=== PATIENT | female | born 1955 | race Caucasian/White ===

== ENCOUNTER 2020-05-22 16:53 | Emergency (ER) | payer OTHER, SELFPAY ==
[2020-05-22 17:00] VITALS: BP 203/93; PULSE 68; RESP 19; TEMP 37.1; O2SAT 99; BMI 23.7
--- NOTE | 2020-05-22 17:07 | DI.RAD.S_ITS ---
PROCEDURE: XR FINGER LT MIN 2V INDICATIONS: jammed finger after a fall TECHNIQUE: 2 views of the 3rd finger(s) acquired. COMPARISON: None. FINDINGS: Bones: There is a dislocation of the proximal interphalangeal joint of the 3rd finger, with a 2 mm avulsion fracture fragment seen. No additional fractures or dislocations are seen. Soft tissues: No suspicious soft tissue calcifications. IMPRESSION: Dislocation of the proximal interphalangeal joint of the 3rd finger, with an associated avulsion fracture. Dictated by: Stone Moreno M.D. on 05/22/2020 at 16:28 Approved by: Stone Moreno M.D. on 05/22/2020 at 16:29
--- NOTE | 2020-05-22 18:20 | PC.NURSE ---
took her wedding ring and band.
[2020-05-22 18:30] VITALS: BP 133/65; PULSE 85; RESP 14; O2SAT 96
--- NOTE | 2020-05-22 19:12 | ED_ITS ---
HPI - Extremity Injury (Upper) <JOAQUINA Dukes - Last Filed: 05/22/20 22:34> General Chief Complaint: Extremity Injury, Upper Stated Complaint: thinks she broke her middle finger left hand Time Seen by Provider: 05/22/20 18:39 Source: patient Mode of arrival: Family Vehicle Limitations: no limitations History of Present Illness HPI narrative: This is a 64 year female, nonsmoker, who has past medical history significant for hypertension presents to ED with isolated, non dominant hand, left long finger injury after she slipped and fell on a slippery back and jammed her finger on a hard object this afternoon. There is a skin injury on volar aspect on the same finger. Patient reports significant pain in proximal interphalangeal joint and swelling. Unsure of last Td. Patient reports wave like. She is not on blood thinner and denies history of previous injury to affected hand. She denies other injuries including head. PCP at [facility]. Related Data Previous Rx's Medication Instructions Recorded cephalexin [Keflex] 500 mg PO QID 7 Days #28 cap 05/22/20 hydrocodone-acetaminophen [[place]] 1 tab PO Q8H PRN #7 tab 05/22/20 Allergies Allergy/AdvReac Type Severity Reaction Status Date / Time ibuprofen Allergy Rash Verified 05/22/20 17:07 Review of Systems <JOAQUINA Dukes - Last Filed: 05/22/20 22:34> Review of Systems Narrative: General: Denies fever, chills, fatigue, malaise, sweats. Respiratory: Denies dyspnea, cough, wheezing, hemoptysis, sputum. : Denies dysuria, frequency, incontinence, hematuria, urinary retention. Musculoskeletal: HPI Skin: HPI Neurologic: Denies weakness, headache, numbness, change in speech, confusion, seizures, incoordination. Patient History <JOAQUINA Dukes - Last Filed: 05/22/20 22:34> Medical History Hypertension Social History Smoking Status: Former smoker Smoking Status: Former smoker alcohol intake frequency: 0-2 drinks per day Substance Use Type: marijuana Exam <Suleman Cisneros, [employer]OM[employer] - Last Filed: 05/22/20 22:34> Narrative Exam Narrative: General appearance: well developed, well nourished, in no acute distress. Head: normocephalic, atraumatic, no scalp lesions, non-tender. ENT: Hearing grossly intact. Airway patent. Neck/Thyroid: neck supple, full range of motion, no visible masses or meningeal signs. No JVD, non-tender without lymphadenopathy. Skin: no suspicious rashes, lesions over visible areas. Warm and dry and appropriate color for ethnicity. Heart: no clubbing, no cyanosis, no edema. Lungs: Breathing even and unlabored. No stridor. No accessory muscles used. Able to speak in full sentences. Chest: normal shape and expansion. Abdomen: non-obese, non-distended. Neurologic: alert and oriented. Cognitive exam, VALUER and PNS grossly intact on informal exam. Psych: good eye contact, normal affect. Initial Vital Signs Initial Vital Signs: Vital Signs Temperature 98.7 F 05/22/20 17:00 Pulse Rate 68 05/22/20 17:00 Respiratory Rate 19 05/22/20 17:00 Blood Pressure 203/93 H 05/22/20 17:00 Pulse Oximetry 99 05/22/20 17:00 Extrem Left upper extremity: wrist Details: normal to inspection and normal ROM; no tenderness and no swelling and hand Details: abnormal to inspection, normal capillary refill, neuromotor exam abnormal, neurosensory exam normal, tenderness, vascular exam Details: radial pulse present and normal capillary refill, abnormal ROM of finger Details: pain with active ROM, pain with passive ROM and unable to flex or extend, swelling (general swelling to long finger worse in PIP region) Location: of the 3rd digit and laceration; no foreign bodies <Juliane Vieyra DO - Last Filed: 05/23/20 05:46> Initial Vital Signs Initial Vital Signs: Vital Signs Temperature 98.7 F 05/22/20 17:00 Pulse Rate 68 05/22/20 17:00 Respiratory Rate 19 05/22/20 17:00 Blood Pressure 203/93 H 05/22/20 17:00 Pulse Oximetry 99 05/22/20 17:00 Procedures <Suleman RamachandranJOAQUINA Sinha - Last Filed: 05/22/20 22:34> Orthopedic Joint Reduction Joint #1: Time Out Performed: Yes Side: left Joint Reduction Location: finger (long finger) Analgesia: nerve block Local Anesthesia: lidocaine 1% and with bicarb Amount of anesthesic used (mL): 3 Shoulder Technique Used (if applicable): traction/counter-traction Technique used: traction/counter-traction Post-reduction neuro exam: no change Post-reduction vascular: intact Post Reduction X-Ray Obtained: Yes Post Reduction X-Ray Results: reduced (on the 2nd attempt by Dr. Vieyra. ) Splint Applied: Yes Patient Tolerated Procedure: Well Additional Comments: First attempt by myself, was not able to be reduced. From skin wound started bleeding and direct pressure and Leland tourniquet applied for 5 minutes which slowed the bleeding. Wound dressed with bacitracin and pressure dressing by nursing staff. Scores <JOAQUINA Dukes - Last Filed: 05/22/20 22:34> GCS [place] coma scale eye opening: Spontaneous [place] coma scale verbal response: Orientated [place] coma scale motor response: Obey commands [place] coma scale total score: 15 Course <JOAQUINA Dueks - Last Filed: 05/22/20 22:34> Orders Ordered: Discontinued Medications Acetaminophen (Acetaminophen 325 Mg Tablet) 325 mg PO NOW ONE Stop: 05/22/20 18:50 Last Admin: 05/22/20 19:15 Dose: 325 mg Documented by: MARJORIE Hydrocodone Bitart/Acetaminophen (Hydrocodone/Acet 5/325 Prepack) 1 bottle MISC SEEINSTR ONE Stop: 05/22/20 18:50 Last Admin: 05/22/20 19:15 Dose: 1 bottle Documented by: MARJORIE Bacitracin (Bacitracin Oint 0.9 Gm Pckt) 1 applic TOP NOW ONE Stop: 05/22/20 18:50 Last Admin: 05/22/20 19:15 Dose: 1 applic Documented by: MARJORIE Cefazolin Sodium (Cephalexin 250 Mg Prepack) 1 bottle MISC SEEINSTR ONE Stop: 05/22/20 19:14 Last Admin: 05/22/20 19:21 Dose: 250 mg Documented by: MARJORIE Diphtheria/Tetanus/Acell Pertussis (Tet,Diph,Pertuss(Acell),Vac/Pf 0.5 Ml Syringe) 0.5 ml IM .ONCE ONE Stop: 05/22/20 18:50 Last Admin: 05/22/20 19:16 Dose: 0.5 ml Documented by: MARJORIE Lidocaine/Sodium Bicarbonate (Lido 1%/Sod Bicarb 8.4% (10ml) 10 Ml Syringe) 10 ml INJ NOW ONE Stop: 05/22/20 18:50 Last Admin: 05/22/20 19:15 Dose: 10 ml Documented by: MARJORIE Vital Signs Vital signs: Vital Signs - 8 hr 05/22/20 17:00 05/22/20 18:30 05/22/20 19:55 Temperature 98.7 F Pulse Rate 68 85 Respiratory Rate 19 14 Blood Pressure 203/93 H 133/65 212/94 H Pulse Oximetry 99 96 <Juliane Vieyra DO - Last Filed: 05/23/20 05:46> Orders Ordered: Discontinued Medications Acetaminophen (Acetaminophen 325 Mg Tablet) 325 mg PO NOW ONE Stop: 05/22/20 18:50 Last Admin: 05/22/20 19:15 Dose: 325 mg Documented by: MARJORIE Hydrocodone Bitart/Acetaminophen (Hydrocodone/Acet 5/325 Prepack) 1 bottle MISC SEEINSTR ONE Stop: 05/22/20 18:50 Last Admin: 05/22/20 19:15 Dose: 1 bottle Documented by: MARJORIE Bacitracin (Bacitracin Oint 0.9 Gm Pckt) 1 applic TOP NOW ONE Stop: 05/22/20 18:50 Last Admin: 05/22/20 19:15 Dose: 1 applic Documented by: MARJORIE Cefazolin Sodium (Cephalexin 250 Mg Prepack) 1 bottle MISC SEEINSTR ONE Stop: 05/22/20 19:14 Last Admin: 05/22/20 19:21 Dose: 250 mg Documented by: MARJORIE Diphtheria/Tetanus/Acell Pertussis (Tet,Diph,Pertuss(Acell),Vac/Pf 0.5 Ml Syringe) 0.5 ml IM .ONCE ONE Stop: 05/22/20 18:50 Last Admin: 05/22/20 19:16 Dose: 0.5 ml Documented by: MARJORIE Lidocaine/Sodium Bicarbonate (Lido 1%/Sod Bicarb 8.4% (10ml) 10 Ml Syringe) 10 ml INJ NOW ONE Stop: 05/22/20 18:50 Last Admin: 05/22/20 19:15 Dose: 10 ml Documented by: MARJORIE Vital Signs Vital signs: Vital Signs - 8 hr 05/22/20 17:00 05/22/20 18:30 05/22/20 19:55 Temperature 98.7 F Pulse Rate 68 85 Respiratory Rate 19 14 Blood Pressure 203/93 H 133/65 212/94 H Pulse Oximetry 99 96 MDM - Extremity Injury (Upper) <Suleman Ramachandran-AlejoJOAQUINA crespo - Last Filed: 05/22/20 22:34> Differential Diagnosis Differential diagnosis: Likely finger sprain and other (Fracture finger) Medical Records Attestation: I reviewed the patient's medical records. Imaging Data XR-Finger #1: Radiologist's Impression: [address] [id number] ReportSigned Patient: Beto Negrete#: [id number]: 6Acct:[id number]/Sex: 64 / FDate of Service: 05/22/20Loc: EDAccession Number: [id number] Procedure: XR finger LT min 2V Ordering Provider: Ophelia Garcia D.O. PROCEDURE: XR FINGER LT MIN 2V INDICATIONS: jammed finger after a fall TECHNIQUE: 2 views of the 3rd finger(s) acquired. COMPARISON: None. FINDINGS: Bones: There is a dislocation of the proximal interphalangeal joint of the 3rd finger, with a 2 mm avulsion fracture fragment seen. No additional fractures or dislocations are seen. Soft tissues: No suspicious soft tissue calcifications. IMPRESSION: Dislocation of the proximal interphalangeal joint of the 3rd finger, with an associated avulsion fracture. Dictated by: Stone Moreno M.D. on 05/22/2020 at 16:28 Approved by: Stone Moreno M.D. on 05/22/2020 at 16:29 XR-Finger #2 post reduction: Radiologist's Impression: [address] [id number] ReportSigned Patient: Beto Negrete#: [id number]: 6Acct:[id number]/Sex: 64 / FDate of Service: 05/22/20Loc: EDAccession Number: [id number] Procedure: XR finger LT min 2V Ordering Provider: Suleman Cisneros PROCEDURE: XR FINGER LT MIN 2V INDICATIONS: post reduction TECHNIQUE: AP hand, 2 views of the left finger(s) acquired. COMPARISON: [facility], , XR FINGER LT MIN 2V, 05/22/2020, 17:13. FINDINGS: Bones: No fractures or dislocations. No suspicious bony lesions. Soft tissues: No suspicious soft tissue calcifications. IMPRESSION: Postreduction views demonstrate interval reduction of the middle finger PIP joint dislocation. There is no fracture. Dictated by: Francisco Javier Fleming M.D. on 05/22/2020 at 20:27 Approved by: Francisco Javier Fleming M.D. on 05/22/2020 at 20:28 MDM Narrative Medical decision making narrative: This is a 64 year female presents to ED with isolated injury to non dominant hand on left long finger injury after mechanical fall and jammed the affected finger when she fell. Patient reports maximum tenderness located in PIP joint of long finger. She has significant pain, moderate swelling, limited range of motion but with intact sensation distally. There was associated small abrasion on ring finger and puncture wound to volar aspect on mid phalanx of the long finger. Tdap was updated today. Patient medicated with [place], Tylenol, and visual block with lidocaine for pain. Initial x-ray test showed dislocation of the proximal interphalangeal joint of the 3rd finger with an associated avulsion fracture. Attempted closed reduction after the medication was administered but was not successful. Consulted Dr. Vieyra and closed reduction done without difficulty on the 2nd attempt. Patient reports Patient improved discomfort and cap refill is intact. Patient reports discomfort on wound and has intact sensation distally. Had profusely bleeding from volar aspect of middle phalanx of affected finger during initial closed reduction. Wound was cleaned and hemostasis was obtained by direct pressure and short period of using Leland tourniquet for 5 minutes. Affected finger was applied on aluminum finger splint. Patient provided [place] prepack and Keflex to treat as open fracture. Discussed narcotic pain medication precautions with patient. #2 Xray post reduction indicates NO FRACTURES or dislocation. Patient and her spouse had very short time to catch a last ferry to [facility] and were very anxious to make it to the ferry and was released before x-ray reading was available. Patient was asymptomatic and denied chest pain, dyspnea, or lightheadedness. Patient blood pressure was still elevated when she was released from ED and it is likely from anxiousness to make it to ferry in 5 minutes before the last ferry. Even though, no fracture shown on post reduction, given the location is on PIP joint and unable monitor the dressing since the affected finger is splinted with aluminum splint, it will be prudent for patient to continue with antibiotic medication. Patient's PCP located at [place] and advised to call office tomorrow if patient could be seen locally at [facility] orthopedist. Return precautions were discussed with patient and she verbalized understanding in agreement with the treatment plan. Discharge Plan Departure Patient Disposition: Home Clinical Impression: Finger fracture, left Qualifiers: Encounter type: initial encounter Finger: middle finger Fracture type: open Phalanx: middle Fracture alignment: displaced Qualified Code(s): S62.623B - Displaced fracture of middle phalanx of left middle finger, initial encounter for open fracture Dislocation of finger Qualifiers: Encounter type: initial encounter Qualified Code(s): S63.259A - Unspecified dislocation of unspecified finger, initial encounter Instructions: DI for Finger Fracture, DI for Finger Dislocation Activity Restrictions/Additional Instructions: You have been diagnosed with [open fracture and dislocation on left middle finger which was reduced and splinted. What to do: *Take your medications as directed. Please start Keflex 4 times a day for next 7 days. You can take [id number] Tylenol and or Motrin for [id number] pain. For severe pain, please take [place]. This is narcotic medications he can cause drowsiness so please take precautions not driving, drinking alcohol, or operating heavy equipments. It can also cause constipation so please take precautions. *Follow up with your primary care provider/orthopedist in 2-3 days, call for an appointment. Let them know you were seen in the ED and that we asked you to be seen in follow up. *Return to ED if you have any new, worsening, or concerning symptoms, such as [worsening pain, tingling/numbness/weakness to affected finger, fever, purulent discharge, chest pain, breathing difficulty, or any acute concerns]. Prescriptions: New cephalexin [Keflex] 500 mg capsule 500 mg PO QID 7 Days Qty: 28 RF: 0 hydrocodone-acetaminophen [[place]] 5-325 mg tablet 1 tab PO Q8H PRN (Reason: pain) Qty: 7 RF: 0 Referrals: [facility] [Provider Group] Elisabeth Elmore ARNP [Primary Care Provider] - <Juliane Vieyra DO - Last Filed: 05/23/20 05:46> Cosign ED Attending Luz Attestation: I was immediately available in the department for consultation. Documentation has been reviewed. I agree with assessment and plan.
[2020-05-22] MEDS: HYDROCODONE/ACET 5/325 PREPACK 1 BOTTLE MISC (19:15)
[2020-05-22] MEDS: LIDO 1%/SOD BICARB 8.4% (10ML) 10 ML SYRINGE INJ (19:15)
[2020-05-22] MEDS: ACETAMINOPHEN 325 MG TABLET PO (19:15)
[2020-05-22] MEDS: BACITRACIN OINT 0.9 GM PCKT 1 APPLIC TOP (19:15)
[2020-05-22] MEDS: TET,DIPH,PERTUSS(ACELL),VAC/PF 0.5 ML SYRINGE IM (19:16)
[2020-05-22] MEDS: cephALEXin 250 MG PREPACK 1 BOTTLE MISC (19:21)
[2020-05-22 19:55] VITALS: BP 212/94
== END 2020-05-22 20:00 | disposition home or self-care (01) ==
PROVIDERS: Emergency Provider Nurse Practitioner Family; PCP Internal Medicine
DX: S63.259A Unspecified dislocation of unspecified finger, initial encounter (principal); W18.00XA Striking against unspecified object with subsequent fall, initial encounter; Z23 Encounter for immunization
CPT/HCPCS: 26770; 29130; 64450; 73140; 90471; 99283; 99284; STOP; 90715

== ENCOUNTER → 2020-10-20 10:07 | Outpatient (CLI) | payer MEDICARE, SELFPAY ==
--- NOTE | 2020-10-20 10:09 | DI.RAD.S_ITS ---
PROCEDURE: XR HAND LT MIN 3V INDICATIONS: FAll, left hand pain, swelling Middle Metacarpal TECHNIQUE: 3 views of the hand(s) acquired. COMPARISON: None. FINDINGS: Bones: No fractures or dislocations. Carpal bones are normally aligned. Mild osteoarthritic changes are noted throughout left hand and wrist joints. No suspicious bony lesions. Soft tissues: No suspicious soft tissue calcifications. Mild soft tissue swelling surrounding 3rd PIP joint is seen. IMPRESSION: No gross acute left hand fracture or dislocation. Mild left hand osteoarthritis. Mild 3rd PIP joint soft tissue swelling. Dictated by: Emigdio Lee M.D. on 10/20/2020 at 10:31 Approved by: Emigdio Lee M.D. on 10/20/2020 at 10:34
== END ==
PROVIDERS: PCP Family Medicine; Referring Provider Student in an Organized Health Care Education/Training Program; Visit Provider Student in an Organized Health Care Education/Training Program
DX: M79.642 Pain in left hand (principal); M19.042 Primary osteoarthritis, left hand; M79.89 Other specified soft tissue disorders
CPT/HCPCS: 73130

== ENCOUNTER → 2020-10-29 09:58 | Outpatient (CLI) | payer MEDICARE, SELFPAY ==
--- NOTE | 2020-10-29 09:59 | DI.MG.S_ITS ---
BILATERAL DIGITAL SCREENING MAMMOGRAM 3D/2D WITH CAD: 10/29/2020 CLINICAL: Routine screening. Family history of breast cancer. Comparison is made to exams dated: 07/14/2019 mammogram, 03/26/2018 mammogram, 03/24/2018 mammogram, and 12/12/2016 mammogram - outside location. There are scattered fibroglandular elements in both breasts. Current study was also evaluated with a Computer Aided Detection (CAD) system. No significant masses, calcifications, or other findings are seen in either breast. There has been no significant interval change. IMPRESSION: NEGATIVE There is no mammographic evidence of malignancy. A 1 year screening mammogram is recommended. This exam was interpreted at Station ID: [id number]. NOTE: For mammograms, a report in lay terms will be sent to the patient. Approximately 15% of breast malignancies will not be visualized mammographically. In the management of a palpable breast mass, a negative mammogram must not discourage biopsy of a clinically suspicious lesion. Electronically Signed By: Emigdio smith/marlene:10/31/2020 08:16:59 letter sent: Normal Exam ACR BI-RADS Category 1: Negative [id number]
== END ==
PROVIDERS: PCP Family Medicine; Referring Provider Family Medicine; Visit Provider Family Medicine
DX: Z12.31 Encounter for screening mammogram for malignant neoplasm of breast (principal); Z80.3 Family history of malignant neoplasm of breast
CPT/HCPCS: 77063; 77067

== ENCOUNTER → 2020-11-01 08:01 | Outpatient (CLI) | payer MEDICARE, SELFPAY ==
[2020-11-01 08:54] LABS: Add Manual Diff / Slide Review NO; Basophils Absolute Auto 100 /uL (0-100); Basophils Percent Auto 1.4 % (0-2); Eosinophils Absolute Auto 300 /uL (0-450); Eosinophils Percent Auto 7.3 % (2-4); Hematocrit 37.5 % (36-46); Hemoglobin 12.8 g/dL (12.0-16.0); Lymphocytes Absolute Auto 1500 /uL (1100-4500); Lymphocytes Percent Auto 31.8 % (25-40); Mean Corpuscular HGB Conc 34.2 % (30-36); Mean Corpuscular Hemoglobin 33.4 PG (26-34); Mean Corpuscular Volume 97.9 fL (80-100); Monocytes Absolute Auto 300 /uL (0-900); Monocytes Percent Auto 6.7 % (3-14); Neutrophils Absolute Auto 2500 /uL (1500-7000); Neutrophils Percent Auto 52.8 % (50-75); Platelet Count 322 X10^3/uL (150-400); Red Blood Cell Count 3.83 X10^6/uL (4.0-5.2); Red Cell Distribution Width 12.8 % (11.6-14.8); White Blood Cell Count 4.7 X10^3/uL (4.5-11.0)
[2020-11-01 09:09] LABS: Alanine Aminotransferase 17 IU/L (<35); Albumin 4.1 g/dL (3.5-5.0); Albumin Globulin Ratio 1.4 (1.0-2.8); Alkaline Phosphatase 79 U/L (38-126); Aspartate Aminotransferase 28 IU/L (14-36); Bilirubin Total 0.6 mg/dL (0.2-1.3); Blood Urea Nitrogen 17 mg/dL (7-17); Calcium 9.4 mg/dL (8.4-10.2); Carbon Dioxide 28 mmol/L (22-32); Chloride 104 mmol/L (98-107); Cholesterol 211 mg/dL (140-199); Estimated Glomerular Filt Rate > 60.0 mL/min (>60); Glucose 97 mg/dL (80-110); HDL Cholesterol 84 mg/dL (40-60); HEMOLYSIS < 15 (0-50); LDL Cholesterol Calculated 109 mg/dL (<100); Potassium 3.9 mmol/L (3.4-5.1); Sodium 138 mmol/L (137-145); Total Protein 7.1 g/dL (6.3-8.2); Triglycerides 89 mg/dL (35-150)
[2020-11-01 09:25] LABS: Free T3, Triiodothyronine Free 2.99 pg/mL (2.77-5.27); Free T4, Direct Thyroxine 0.88 ng/dL (0.78-2.19)
== END ==
PROVIDERS: PCP Family Medicine; Referring Provider Family Medicine; Visit Provider Family Medicine
DX: I10 Essential (primary) hypertension (principal)
CPT/HCPCS: 36415; 80053; 80061; 84439; 84443; 84481; 85025

== ENCOUNTER → 2021-03-19 12:42 | Outpatient (CLI) | payer MEDICARE, SELFPAY ==
--- NOTE | 2021-03-19 12:45 | DI.RAD.S_ITS ---
PROCEDURE: XR RIBS LT MIN 3V W CXR1V INDICATIONS: rib pain TECHNIQUE: 2 views of the left ribs were acquired, along with a single view chest. COMPARISON: None. FINDINGS: Surgical changes and devices: None. Bones and chest wall: A marker is placed upon the area of clinical concern. Within this region, no displaced rib fracture or other significant rib abnormality can be seen. No rib fractures are seen elsewhere. No suspicious bony lesions. Age-appropriate bony degenerative changes are seen. Overlying soft tissues appear unremarkable. Lungs and pleura: No pleural effusions or pneumothorax. Lungs appear clear. Mediastinum: Mediastinal contours appear normal. Heart size is normal. IMPRESSION: No displaced fractures can be seen. No pneumothorax. Dictated by: Stone Moreno M.D. on 03/19/2021 at 12:11 Approved by: Stone Moreno M.D. on 03/19/2021 at 12:12
== END ==
PROVIDERS: PCP Family Medicine; Referring Provider Nurse Practitioner Family; Visit Provider Nurse Practitioner Family
DX: R07.81 Pleurodynia (principal)
CPT/HCPCS: 71101

== ENCOUNTER → 2021-11-07 14:37 | Outpatient (CLI) | payer MEDICARE, SELFPAY ==
--- NOTE | 2021-11-07 14:39 | DI.MG.S_ITS ---
BILATERAL DIGITAL SCREENING MAMMOGRAM 3D/2D WITH CAD: 11/07/2021 CLINICAL: Routine screening. Family history of breast cancer. Comparison is made to exams dated: 10/29/2020 mammogram - [facility], 07/14/2019 mammogram, and 03/26/2018 mammogram - outside location. There are scattered fibroglandular elements in both breasts. Current study was also evaluated with a Computer Aided Detection (CAD) system. No significant masses, calcifications, or other findings are seen in either breast. There has been no significant interval change. IMPRESSION: NEGATIVE There is no mammographic evidence of malignancy. A 1 year screening mammogram is recommended. This exam was interpreted at Station ID: [id number]. NOTE: For mammograms, a report in lay terms will be sent to the patient. Approximately 15% of breast malignancies will not be visualized mammographically. In the management of a palpable breast mass, a negative mammogram must not discourage biopsy of a clinically suspicious lesion. Electronically Signed By: Vandana aldana/marlene:11/07/2021 15:49:50 letter sent: Normal Exam ACR BI-RADS Category 1: Negative [id number]
== END ==
PROVIDERS: PCP Family Medicine; Referring Provider Family Medicine; Visit Provider Family Medicine
DX: Z12.31 Encounter for screening mammogram for malignant neoplasm of breast (principal); Z80.3 Family history of malignant neoplasm of breast
CPT/HCPCS: 77063; 77067

== ENCOUNTER → 2021-12-14 14:35 | Outpatient (CLI) | payer MEDICARE, SELFPAY ==
--- NOTE | 2021-12-14 14:37 | DI.RAD.S_ITS ---
PROCEDURE: XR KNEE LT 3V INDICATIONS: evaluate and treat bilateral chronic knee TECHNIQUE: 3 views of the knee were acquired. COMPARISON: None. FINDINGS: Bones: No fractures or dislocations. No suspicious bony lesions. Tricompartment degenerative arthritis with bulky osteophytes and patellofemoral joint space obliteration. Soft tissues: No joint effusion. No suspicious soft tissue calcifications. IMPRESSION: Severe degenerative arthritis of the left knee. Dictated by: James Hartmann M.D. on 12/14/2021 at 16:48 Approved by: James Hartmann M.D. on 12/14/2021 at 16:50
--- NOTE | 2021-12-14 14:37 | DI.RAD.S_ITS ---
PROCEDURE: XR KNEE RT 3V INDICATIONS: evaluate and treat bilateral chronic knee pain TECHNIQUE: 3 views of the knee were acquired. COMPARISON: None. FINDINGS: Bones: No fractures or dislocations. No suspicious bony lesions. Bulky chart compartment osteophytes. Severe medial compartment joint space loss. Patellofemoral joint space obliteration. Soft tissues: No joint effusion. No suspicious soft tissue calcifications. IMPRESSION: Severe degenerative arthritis of the right knee. Dictated by: James Hartmann M.D. on 12/14/2021 at 16:50 Approved by: James Hartmann M.D. on 12/14/2021 at 16:50
== END ==
PROVIDERS: PCP Family Medicine; Referring Provider Family Medicine; Visit Provider Family Medicine
DX: M25.561 Pain in right knee (principal); M25.562 Pain in left knee; G89.29 Other chronic pain; M17.0 Bilateral primary osteoarthritis of knee
CPT/HCPCS: 73562

== ENCOUNTER → 2023-01-21 15:03 | Outpatient (CLI) | payer MEDICARE, SELFPAY ==
--- NOTE | 2023-01-21 15:04 | DI.RAD.S_ITS ---
PROCEDURE: XR FOOT LT MIN 3V INDICATIONS: left foot pain, concern for stress fx. TECHNIQUE: 3 views of the foot were acquired. COMPARISON: None. FINDINGS: Bones: No definite acute fracture identified. Polyarticular degenerative changes of the foot present, most pronounced at the forefoot. Soft tissues: No tibiotalar joint effusion. IMPRESSION: No acute fracture identified. If symptoms persist, follow-up radiographs and/or CT or MRI may be helpful for further evaluation. Dictated by: Kb Turner M.D. on 01/22/2023 at 16:53 Approved by: Kb Turner M.D. on 01/22/2023 at 16:56
== END ==
PROVIDERS: PCP Family Medicine; Referring Provider Family Medicine; Visit Provider Family Medicine
DX: M79.672 Pain in left foot (principal)
CPT/HCPCS: 73630

== ENCOUNTER → 2023-01-30 09:04 | Outpatient (CLI) | payer MEDICARE, SELFPAY ==
[2023-01-30 09:31] LABS: Add Manual Diff / Slide Review NO; Basophils Absolute Auto 100 /uL (0-100); Basophils Percent Auto 1.6 % (0-2); Eosinophils Absolute Auto 100 /uL (0-450); Eosinophils Percent Auto 2.1 % (2-4); Hemoglobin 13.2 g/dL (12.0-16.0); Lymphocytes Absolute Auto 1500 /uL (1100-4500); Lymphocytes Percent Auto 31.1 % (25-40); Mean Corpuscular HGB Conc 33.8 % (30-36); Mean Corpuscular Hemoglobin 33.7 PG (26-34); Mean Corpuscular Volume 99.9 fL (80-100); Monocytes Absolute Auto 300 /uL (0-900); Monocytes Percent Auto 6.7 % (3-14); Neutrophils Absolute Auto 2900 /uL (1500-7000); Neutrophils Percent Auto 58.5 % (50-75); Platelet Count 347 X10^3/uL (150-400); Red Blood Cell Count 3.91 X10^6/uL (4.0-5.2); Red Cell Distribution Width 12.1 % (11.6-14.8)
[2023-01-30 09:44] LABS: Prothrombin Time 11.1 SECONDS (10.1-12.7)
[2023-01-30 09:52] LABS: Alanine Aminotransferase 18 IU/L (<35); Albumin 4.1 g/dL (3.5-5.0); Albumin Globulin Ratio 1.4 (1.0-2.8); Alkaline Phosphatase 72 U/L (38-126); Aspartate Aminotransferase 22 IU/L (14-36); BUN Creatinine Ratio 27.4 (6-22); Bilirubin Total 0.8 mg/dL (0.2-1.3); Blood Urea Nitrogen 20 mg/dL (7-17); Calcium 9.2 mg/dL (8.4-10.2); Carbon Dioxide 29 mmol/L (22-32); Chloride 101 mmol/L (98-107); Cholesterol 228 mg/dL (140-199); Estimated Glomerular Filt Rate > 60 mL/min (>60); Glucose 94 mg/dL (80-110); HDL Cholesterol 92 mg/dL (40-60); HEMOLYSIS < 15 (0-50); LDL Cholesterol Calculated 117 mg/dL (<100); Potassium 4.5 mmol/L (3.4-5.1); Sodium 134 mmol/L (137-145); Total Protein 7.1 g/dL (6.3-8.2); Triglycerides 97 mg/dL (35-150)
== END ==
PROVIDERS: PCP Family Medicine; Referring Provider Family Medicine; Visit Provider Family Medicine
DX: I10 Essential (primary) hypertension (principal); R23.3 Spontaneous ecchymoses
CPT/HCPCS: 36415; 80053; 80061; 85025; 85610

== ENCOUNTER → 2023-02-12 15:01 | Outpatient (CLI) | payer MEDICARE, SELFPAY ==
--- NOTE | 2023-02-12 15:10 | DI.RAD.S_ITS ---
Bone Density Report Name: RICCI CORDOVA Age: 67 Sex: Female Ethnicity: White Date of : 1955 Indication: postmenopausal; screening for osteoporosis; Referring Provider: ELLEN COPE D.O. Study: Bone densitometry was performed. Exam Date: February 12, 2023 Accession number: [id number] Bone Density: Region BMD T-score Z-score Classification AP Spine(L1, L2, L3) 0.918 -0.9 1.0 Normal Femoral Neck (Left) 0.701 -1.3 0.3 Osteopenia Total Hip (Left) 0.781 -1.3 0.0 Osteopenia Femoral Neck (Right) 0.706 -1.3 0.4 Osteopenia Total Hip (Right) 0.819 -1.0 0.3 Normal Total Hip Mean 0.800 -1.2 0.2 Osteopenia World Health Organization criteria for BMD impression classify patients as: Normal (T-score at or above -1.0), Osteopenia (T-score between -1.0 and -2.5), or Osteoporosis (T-score at or below -2.5). 10-year Fracture Risk(1): Major Osteoporotic Fracture 8.9% Hip Fracture 0.9% Reported Risk Factors: [place] (), Neck BMD=0.701, BMI=24.2 (1) FRAX(R) Version 3.08. Fracture probability calculated for an untreated patient. Fracture probability may be lower if the patient has received treatment. Impression: The patient has low bone mass, based on the Left Total Hip T-score. The patient has an estimated ten-year risk of hip fracture of 0.9% and an estimated ten-year risk of major fracture of 8.9%, based on the WHO FRAX algorithm. Discussion: BONE DENSITY IS LOW AT ONE OR MORE SKELETAL SITES. This patient's lowest T-score is low at one or more skeletal sites. It meets the World Health Organization's (WHO) criteria for low bone mass (T-score between -1.0 and -2.5). The patient's 10-year risk of fracture as calculated by FRAX is less than the threshold where pharmacological therapy is recommended by the National Osteoporosis Foundation (NOF). However, all treatment decisions require clinical judgment and consideration of individual patient factors, including patient preferences, comorbidities, previous drug use, risk factors not captured in the FRAX model (e.g., frailty, falls, vitamin D deficiency, increased bone turnover, interval significant decline in bone density) and possible under or overestimation of fracture risk by FRAX. The patient should follow a healthful lifestyle (good nutrition with adequate calcium and vitamin D, and appropriate weight-bearing exercise). Follow-Up: Consider repeating this study in 2 to 3 years to reassess this patient's status, or sooner if there is some new clinical indication. Reported by: SHANE ROSENBERG MD on 02/12/2023 3:27:00 PM.
== END ==
PROVIDERS: PCP Family Medicine; Referring Provider Family Medicine; Visit Provider Family Medicine
DX: Z13.820 Encounter for screening for osteoporosis (principal); Z78.0 Asymptomatic menopausal state; M85.852 Other specified disorders of bone density and structure, left thigh
CPT/HCPCS: 77080

== ENCOUNTER → 2023-02-14 16:18 | Outpatient (CLI) | payer MEDICARE, SELFPAY ==
--- NOTE | 2023-02-14 16:20 | DI.MG.S_ITS ---
BILATERAL DIGITAL SCREENING MAMMOGRAM 3D/2D WITH CAD: 02/14/2023 CLINICAL: Routine screening. Family history of breast cancer. Comparison is made to exams dated: 11/07/2021 mammogram, 10/29/2020 mammogram - [facility], and 07/14/2019 mammogram - outside location. There are scattered areas of fibroglandular density in both breasts (category b / 25%-50% glandular tissue). Current study was also evaluated with a Computer Aided Detection (CAD) system. No significant masses, calcifications, or other findings are seen in either breast. There has been no significant interval change. IMPRESSION: NEGATIVE There is no mammographic evidence of malignancy. A 1 year screening mammogram is recommended. Based on the Tyrer Cuzick model (a risk assessment model) the patient's lifetime risk is 10.3% and her 10 year risk is 5.5%. According to the ACR, ACS, and NCCN guidelines, an annual breast MRI exam along with mammogram is recommended if the patient's lifetime risk is 20% or greater. This exam was interpreted at Station ID: [id number]. NOTE: For mammograms, a report in lay terms will be sent to the patient. Approximately 15% of breast malignancies will not be visualized mammographically. In the management of a palpable breast mass, a negative mammogram must not discourage biopsy of a clinically suspicious lesion. Electronically Signed By: Joe hooper/marlene:02/15/2023 08:20:50 letter sent: Normal Exam ACR BI-RADS Category 1: Negative [id number]
== END ==
PROVIDERS: PCP Family Medicine; Referring Provider Family Medicine; Visit Provider Family Medicine
DX: Z12.31 Encounter for screening mammogram for malignant neoplasm of breast (principal); Z80.3 Family history of malignant neoplasm of breast
CPT/HCPCS: 77063; 77067

== ENCOUNTER → 2023-04-05 12:16 | Outpatient (CLI) | payer OTHER, SELFPAY ==
--- NOTE | 2023-04-05 12:18 | DI.US.S_ITS ---
PROCEDURE: US PERIPH VENOUS LOW EXTREM BI INDICATIONS: BILATERAL LEG BRUISING TECHNIQUE: Real-time imaging, as well as color and pulse Doppler interrogation, were performed of the deep veins of both legs from the inguinal ligament to the popliteal fossa, with documentation of the visualized calf veins. COMPARISON: None. FINDINGS: Right: The common femoral, femoral, popliteal, and the visualized calf veins are normally compressible, and free of intraluminal thrombus. Color and pulse Doppler demonstrate normal phasic intravascular flow. There is normal augmentation response to distal compression maneuver. Complex Ross's cyst measuring 2.0 cm. Left: The common femoral, femoral, popliteal, and the visualized calf veins are normally compressible, and free of intraluminal thrombus. Color and pulse Doppler demonstrate normal phasic intravascular flow. There is normal augmentation response to distal compression maneuver. Complex Ross's cyst measuring 2.2 cm. IMPRESSION: 1. No deep venous thrombosis identified within either the left or right lower extremities. 2. Bilateral complex Ross's cyst. Dictated by: Javier Ballesteros [facility] Interpreted: Bobo Fleming MD on 04/05/2023 at 13:10 Approved by: Francisco Javier Fleming M.D. on 04/08/2023 at 14:52
== END ==
PROVIDERS: PCP Family Medicine; Referring Provider Family Medicine; Visit Provider Family Medicine
DX: R23.3 Spontaneous ecchymoses (principal); S80.12XA Contusion of left lower leg, initial encounter; M71.22 Synovial cyst of popliteal space [Baker], left knee; M71.21 Synovial cyst of popliteal space [Baker], right knee
CPT/HCPCS: 93970

== ENCOUNTER → 2023-06-04 16:35 | Outpatient (CLI) | payer MEDICARE, SELFPAY ==
--- NOTE | 2023-06-04 16:43 | DI.RAD.S_ITS ---
PROCEDURE: XR FOOT LT MIN 3V INDICATIONS: chronic pain mostly @ 5th metatarsal TECHNIQUE: 3 views of the foot were acquired. COMPARISON: [facility], CR, XR FOOT LT MIN 3V, 01/21/2023, 15:01. FINDINGS: Bones: Age indeterminate mildly displaced, transverse, extra-articular 5th metatarsal fracture with callus formation, new compared to prior. Mild 1st MTP joint space narrowing. No suspicious bony lesions. Soft tissues: No tibiotalar joint effusion. Achilles tendon appears normal. IMPRESSION: Age indeterminate mildly displaced, transverse, extra-articular 5th metatarsal fracture with callus formation, new compared to prior, likely subacute. Dictated by: Skye Menon M.D. on 06/04/2023 at 20:16 Approved by: Skye Menon M.D. on 06/04/2023 at 22:00
== END ==
PROVIDERS: PCP Family Medicine; Referring Provider Physician Assistant; Visit Provider Physician Assistant
DX: S92.352A Displaced fracture of fifth metatarsal bone, left foot, initial encounter for closed fracture (principal); M79.672 Pain in left foot; G89.29 Other chronic pain; X58.XXXA Exposure to other specified factors, initial encounter
CPT/HCPCS: 73630

== ENCOUNTER 2023-07-15 10:30 | Outpatient (RCR) | payer MEDICARE, SELFPAY ==
--- NOTE | 2023-07-03 14:10 | PT.OIE ---
Current Diagnoses Unilateral primary osteoarthritis, left knee (07/03/23) Past Medical History (Last Updated 04/22/23 @ 12:10 by Hang Cordon DO) Ross cyst Bilateral chronic knee pain Cervical cancer screening Chicken pox Easy bruisability Hypertension (~2015) Intermittent palpitations Knee problem (~2014) Measles Hwang's neuroma of both feet Osteopenia after menopause Pain, foot, left, chronic Plantar wart of left foot Right hip pain Traumatic ecchymosis of multiple sites of left lower extremity Vaginal dryness, menopausal Past Surgical History (Last Reviewed 11/27/21 @ 09:23 by Devin Pelayo DO) Anesthesia History of ankle surgery (~2002) History of appendectomy History of broken finger (~2009) History of foot surgery Visit Care Team Role Provider Type Lenora Martin PA-C Family Provider Advanced Teacher Learning Disabled Primary Care Provider Specialty: Medical Wound Care Address: [address] [place] [address], [id number] Email: [email or web address] Santy Tamayo DO Attending Provider Non-Staff Referring Provider Specialty: Orthopedics Address: [address] [place] [address], [id number] Email: Physical Therapy Initial Evaluation PT-OP-A Visit Information Start: 07/03/23 08:59 Freq: Status: Active Protocol: Document 07/03/23 09:04 NM (Rec: 07/03/23 10:28 NM [id number]) Out-Patient Physical Therapy Visit Information Visit Information Visit Type Initial Evaluation Visit Start Time 09:00 Visit Stop Time 09:45 Total Visit Minutes 45 Visit Number 1 Evaluation Information Evaluation Date 07/03/23 Precautions Precautions L 5th metatarsal fracture 2022 Hx of fractures PT-OP-B Current Condition Start: 07/03/23 08:59 Freq: Status: Active Protocol: Document 07/03/23 09:04 NM (Rec: 07/03/23 10:28 NM [id number]) Current Condition History of Current Condition Onset Date 10 years Current Complaints B knee pain History of Current Condition Pt presents to clinic with B knee pain s/p dx of B knee OA for the past 10 years. She is planning on having both knees replaced in 2023, L knee in and R knee later in 2023. She reports that her knees feel equally limited. Pt is very active, performing daily swimming, ambulation, climbing /hiking. She has received several cortisone injections for B knee pain, most recently in Mar 2023. Hx of B ross's cysts. Reports most difficulty with squatting, walking down hill, climbing due to B knee pain. Supposed to be wearing boot, but wearing steel plate. In the fall of 2022, pt got a stress fracture of her L 5th metatarsal from walking in [place], reporting that she overdid it. She ignored the pain for several weeks before getting an xray in 05/2023, revealing the stress fracture. She is supposed to be wearing a boot, but reports that it gave her more pain in her back /hips, so she stopped wearing it. Instead, she wearing hiking boots and a steel foot plate. Pt is scheduled to have surgery on 07/18/23 for her L foot with Dr. Mabry. 1/ pain normally, 3/4 worse, before cortisone shot 12/05. B ross's cysts, M/L pain. Difficulty: squat, walking down hill, sleep. 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 Baseline Function- Recreation/Hobbies swim / day, walk 1-1.5 hr, climb mountain; yoga; bike ride Current Functional Impairments (Reported) Functional Limitations- Mobility/Gait unable to ambulate PLOF distances Functional Limitations- Recreation/ Swims with float between legs Hobbies to limit LE use due to pain PT-OP-C Subjective Start: 07/03/23 08:59 Freq: Status: Active Protocol: Document 07/03/23 09:04 NM (Rec: 07/03/23 10:28 NM [id number]) OP-PT Subjective Patient Comments Patient Comments See pt report above for hx Patient Questionnaires Lower Extremity Functional Scale LEFS Score 55/80 OP-PT Pain Assessment Pain Assessment Grid Paper Pain Assessment Grid Completed Yes Location R knee Pain Location Details medial/lateral knee, posterior knee (ross's cysts) Intensity 2 Scale Used Numeric (0 - 10) Description Aching,Dull Description- Other worse pain 3-4/10 with cortisone shot, 6/10 without cortisone shot Frequency Daily Pain Duration lasts minutes Radiating Location none Pain Aggravating Factors Activity,Standing,Walking, Stair Climbing Pain Alleviating Factors Medication,Rest L knee Pain Location Details medial/lateral knee, posterior knee (ross's cysts) Intensity 2 Scale Used Numeric (0 - 10) Description Aching,Dull Description- Other worse pain 3-4/10 with cortisone shot, 6/10 without cortisone shot Frequency Daily Pain Duration last minutes Radiating Location none Pain Aggravating Factors Activity,Standing,Walking, Stair Climbing Pain Alleviating Factors Medication,Rest Home Pain Medication Use Pain Medications Used Yes: naproxen Home Pain Medication Frequency 1/day (night) PT-OP-D Balance Start: 07/03/23 08:59 Freq: Status: Active Protocol: Document 07/03/23 09:04 NM (Rec: 07/03/23 10:28 NM [id number]) Balance Tests Single Limb Standing Single Limb- Right 3 sec Single Limb- Left 1 sec PT-OP-E Functional Tests Start: 07/03/23 08:59 Freq: Status: Active Protocol: Document 07/03/23 09:04 NM (Rec: 07/03/23 10:28 NM [id number]) Functional Tests Five Times Sit to Stand Test Score 15.38 Comments audible clicking noise, limited depth PT-OP-F Manual Assessment Start: 07/03/23 08:59 Freq: Status: Active Protocol: Document 07/03/23 09:04 NM (Rec: 07/03/23 10:28 NM [id number]) Manual Assessments Soft Tissue Assessment Soft Tissue Mobility Assessment No tightness of quads or hamstrings. Tenderness of B posterior knees, palpable bulges. Joint Mobility Assessment Joint Mobility Assessment Minimal limitations in B hip AROM and PROM. Full knee AROM in flex and ext, pain with flexion. PT-OP-G Mobility & Gait Start: 07/03/23 08:59 Freq: Status: Active Protocol: Document 07/03/23 09:04 NM (Rec: 07/03/23 10:28 NM [id number]) OP Gait Assessment Gait Gait Assistance Required: Independent Distance (Feet) 200 Able to Maintain Weight Bearing Status Yes During Gait Assistive Devices Assistive Device None Orthotic/Prosthetic Devices or Brace: Yes Gait Deviations General Gait Pattern Antalgic,Decreased Stride Length Factors Limiting Gait Function Factors Limiting Gait Function Decreased Activity Tolerance, Pain Comments Gait Comments Decreased step time on LLE, antalgic gait. Pt wearing steel plate in L foot PT-OP-H Neuro Start: 07/03/23 08:59 Freq: Status: Active Protocol: Document 07/03/23 09:04 NM (Rec: 07/03/23 10:28 NM [id number]) Sensation Evaluation Gross Sensation Gross Sensation WNL Comments Summary Comments BLE equally intact to light touch sensation PT-OP-J Posture/Palpation/Skin Start: 07/03/23 08:59 Freq: Status: Active Protocol: Document 07/03/23 09:04 NM (Rec: 07/03/23 10:28 NM [id number]) Posture Evaluation Position Standing Evaluation View posterior, lateral Head/C-Spine Posture Forward Head L-Spine Posture Neutral Shoulder Posture (L) Rounded,(R) Rounded Scapula Posture (L) Neutral,(R) Neutral Arm Posture (L) Neutral,(R) Neutral Pelvis Posture Anteriorly Tilted Weight Distribution Weight Shifted Right,Decreased Wt.Bear on (L) Hip Posture (L) Neutral,(R) Neutral Knee Posture (L) Genu Valgus,(R) Genu Valgus Patellar Posture (L) Superior,(R) Superior Ankle/Foot Posture (L) Supinated,(R) Supinated Foot Arch (L) High Arch,(R) High Arch Palpation Assessment Location R knee Palpation Location posterior, medial/lateral joint line, patella, patellar tendon Palpation Findings Tenderness Palpation Details Palpable bulge behind knee; minimal tenderness and slight bulge at pes anserinus. Patella ge. Knee mildly swollen but comparable L knee L knee Palpation Location posterior, medial/lateral joint line, patella, patellar tendon Palpation Findings Tenderness Palpation Details Palpable bulge behind knee; minimal tenderness along lateral joint line. Patella ge. Knee mildly swollen but comparable R knee PT-OP-K Range of Motion Start: 07/03/23 08:59 Freq: Status: Active Protocol: Document 07/03/23 09:04 NM (Rec: 07/03/23 10:28 NM [id number]) Hip Goniometric Range of Motion Hip Left Testing Position Supine Flexion w/Knee Flexed 105 Straight Leg Raise 170 Extension 15 Abduction 20 Internal Rotation 33 External Rotation 24 Right Testing Position Supine Flexion w/Knee Flexed 115 Straight Leg Raise 170 Extension 15 Abduction 20 Internal Rotation 30 External Rotation 30 Knee Goniometric Range of Motion Knee Left Patient Position Supine Flexion Active (degrees) 120 Extension Active (degrees) 0 Comments Reports min pain with flexion Right Patient Position Supine Flexion Active (degrees) 125 Extension Active (degrees) 0 Comments Reports min pain with flexion Ankle and Foot Goniometric Range of Motion Ankle and Foot Left Testing Position Sitting Dorsiflexion with Knee Flexed 5 Plantarflexion 25 Right Testing Position Sitting Dorsiflexion with Knee Flexed 5 Plantarflexion 20 PT-OP-M Strength Start: 07/03/23 08:59 Freq: Status: Active Protocol: Document 07/03/23 09:04 NM (Rec: 07/03/23 10:28 NM [id number]) Hip Strength Hip Manual Muscle Testing Left Flexion (L2) 4 Good Extension (S1) 4 Good Abduction 4- Good- Adduction 4- Good- External Rotation 4- Good- Internal Rotation 4- Good- Right Flexion (L2) 4 Good Extension (S1) 4 Good Abduction 4 Good Adduction 4 Good External Rotation 4- Good- Internal Rotation 4- Good- Knee Strength Knee Manual Muscle Testing Right Flexion (S2) 4 Good Extension (L3) 4 Good Comments Min pain with resisted motions Left Flexion (S2) 4 Good Extension (L3) 4 Good Comments Min pain with resisted motions PT-OP-T Assessment and Plan Start: 07/03/23 08:59 Freq: Status: Active Protocol: Document 07/03/23 09:04 NM (Rec: 07/03/23 10:28 NM [id number]) Physical Therapy Assessment Rehab Potential Rehabilitation Potential Good Evaluation Complexity Number of Personal Factors/Comorbidities 3 or More Number of Body Systems Impaired 3 Clinical Presentation at Evaluation Evolving Impairments Impairments Activity Tolerance,Balance, Coordination,Edema,Functional Activities,Functional Mobility ,Gait,Pain,Posture,ROM, Sensation,Soft Tissue Mobility ,Strength Goals One Impairment HEP Toolroom Machinist Goal (LTG) Pt will reports compliance with HEP at least 3x/wk to demonstrate understanding of exercises and independence prior to TKA. LTG Duration 12 weeks Assessment Summary Assessment Pt is a 67 y.o. female presenting with B knee pain due to OA. She is planning to have B TKA this year. Currently, pt has a L 5th metatarsal fracture and will be having surgery to repair the fracture later in July. Pt has limitations in B knee flexion, but still within functional limits; demos decreased hip flex ROM, but all other hip ROM is normal. Pt has mild limitations in B hip and knee strength, most limited in hip abd and rotation. Pt has minimal pain with B resisted knee flex/ext. During squats, pt has audible clicking during descent and demos decreased squat depth. There are palpable ross's cysts bilaterally, which cause pt minimal pain. Overall, pt has a very active lifestyle and would benefit from further education regarding safe exercise prior to and after her TKA. Pt would benefit from skilled PT to address limitations in B knee ROM and strength, in addition to education regarding safety, gait and ADLs post-operatively in order to decrease fall risk, decrease caregiver burdens and to return to PLOF. Physical Therapy Plan Frequency and Duration Frequency of Treatment 1-2x/wk Duration of treatment (weeks) 12 Plan of Care Start Date 07/03/23 Plan of Care End Date 08/31/23 Therapeutic Interventions Therapeutic Interventions Balance Training,Gait Training ,Home Exercise Program,Joint Mobilizations,Manual Therapy, Neuromuscular Re-education, Orthotic/Prosthetic Management ,Patient/Caregiver Education, Self-Care/Home Management, Sensory Integration,Soft Tissue Mobilization,Taping, Therapeutic Activities, Therapeutic Exercises Modalities Cold Pack/Ice Massage,Hot Packs Next Visit Focus/Plan Next Note Type Treatment Note Next Visit Plan Strengthen BLE in prep for TKA , review post-op exercises
--- NOTE | 2023-07-03 14:11 | PT.OPPOC ---
Physical, Occupational & Speech Therapy At [facility] Current Diagnoses Unilateral primary osteoarthritis, left knee (07/03/23) Visit Care Team Role Provider Type Lenora Martin PA-C Family Provider Advanced Warehouse Receiving Clerk Primary Care Provider Specialty: Medical Wound Care Address: [address] [place] [address], [id number] Email: [email or web address] Santy Tamayo DO Attending Provider Non-Staff Referring Provider Specialty: Orthopedics Address: [address] [place], [address] Email: Plan Of Care PT-OP-T Assessment and Plan Start: 07/03/23 08:59 Freq: Status: Active Protocol: Document 07/03/23 09:04 NM (Rec: 07/03/23 10:28 NM [id number]) Physical Therapy Assessment Rehab Potential Rehabilitation Potential Good Evaluation Complexity Number of Personal Factors/Comorbidities 3 or More Number of Body Systems Impaired 3 Clinical Presentation at Evaluation Evolving Impairments Impairments Activity Tolerance,Balance, Coordination,Edema,Functional Activities,Functional Mobility ,Gait,Pain,Posture,ROM, Sensation,Soft Tissue Mobility ,Strength Goals One Impairment HEP Retirement Goal (LTG) Pt will reports compliance with HEP at least 3x/wk to demonstrate understanding of exercises and independence prior to TKA. LTG Duration 12 weeks Assessment Summary Assessment Pt is a 67 y.o. female presenting with B knee pain due to OA. She is planning to have B TKA this year. Currently, pt has a L 5th metatarsal fracture and will be having surgery to repair the fracture later in July. Pt has limitations in B knee flexion, but still within functional limits; demos decreased hip flex ROM, but all other hip ROM is normal. Pt has mild limitations in B hip and knee strength, most limited in hip abd and rotation. Pt has minimal pain with B resisted knee flex/ext. During squats, pt has audible clicking during descent and demos decreased squat depth. There are palpable lazo's cysts bilaterally, which cause pt minimal pain. Overall, pt has a very active lifestyle and would benefit from further education regarding safe exercise prior to and after her TKA. Pt would benefit from skilled PT to address limitations in B knee ROM and strength, in addition to education regarding safety, gait and ADLs post-operatively in order to decrease fall risk, decrease caregiver burdens and to return to PLOF. Physical Therapy Plan Frequency and Duration Frequency of Treatment 1-2x/wk Duration of treatment (weeks) 12 Plan of Care Start Date 07/03/23 Plan of Care End Date 08/31/23 Therapeutic Interventions Therapeutic Interventions Balance Training,Gait Training ,Home Exercise Program,Joint Mobilizations,Manual Therapy, Neuromuscular Re-education, Orthotic/Prosthetic Management ,Patient/Caregiver Education, Self-Care/Home Management, Sensory Integration,Soft Tissue Mobilization,Taping, Therapeutic Activities, Therapeutic Exercises Modalities Cold Pack/Ice Massage,Hot Packs Next Visit Focus/Plan Next Note Type Treatment Note Next Visit Plan Strengthen BLE in prep for TKA , review post-op exercises Plan of Care Dates Plan of Care Start Date 07/03/23 Plan of Care End Date 08/31/23 Electronically Signed by: Destiney Cobian, PT 07/03/23 4002 If you are in agreement with this Plan of Care, please return a signed and dated copy. I have reviewed this Plan of Care and certify that the skilled therapy services above are required to meet the patient?s needs. Physician Signature Date Printed Name and Credentials Clinical Instructor Signature Printed Name and Credentials
--- NOTE | 2023-07-15 11:40 | PT.OTN ---
Current Diagnoses Unilateral primary osteoarthritis, left knee (07/15/23) Physical Therapy Treatment Note PT-OP-A Visit Information Start: 07/03/23 08:59 Freq: Status: Active Protocol: Document 07/15/23 10:34 MB (Rec: 07/15/23 11:39 MB [id number]) Out-Patient Physical Therapy Visit Information Visit Information Visit Type Treatment Note Visit Start Time 10:34 Visit Stop Time 11:15 Total Visit Minutes 41 Visit Number 2 Number of HEATING AND VENTILATING TENDER Visits 0 Evaluation Information Evaluation Date 07/03/23 Precautions Precautions L 5th metatarsal fracture 2022 Hx of fractures PT-OP-B Current Condition Start: 07/03/23 08:59 Freq: Status: Active Protocol: Document 07/03/23 09:04 NM (Rec: 07/03/23 10:28 NM [id number]) Current Condition History of Current Condition Onset Date 10 years Current Complaints B knee pain History of Current Condition Pt presents to clinic with B knee pain s/p dx of B knee OA for the past 10 years. She is planning on having both knees replaced in 2023, L knee in and R knee later in 2023. She reports that her knees feel equally limited. Pt is very active, performing daily swimming, ambulation, climbing /hiking. She has received several cortisone injections for B knee pain, most recently in Mar 2023. Hx of B lazo's cysts. Reports most difficulty with squatting, walking down hill, climbing due to B knee pain. Supposed to be wearing boot, but wearing steel plate. In the fall of 2022, pt got a stress fracture of her L 5th metatarsal from walking in [place], reporting that she overdid it. She ignored the pain for several weeks before getting an xray in 05/2023, revealing the stress fracture. She is supposed to be wearing a boot, but reports that it gave her more pain in her back /hips, so she stopped wearing it. Instead, she wearing hiking boots and a steel foot plate. Pt is scheduled to have surgery on 07/18/23 for her L foot with Dr. Mabry. 1/2 pain normally, 3/4 worse, before cortisone shot 12/05. B lazo's cysts, M/L pain. Difficulty: squat, walking down hill, sleep. 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 Baseline Function- Recreation/Hobbies swim , walk 1-1.5 hr, climb mountain; yoga; bike ride Current Functional Impairments (Reported) Functional Limitations- Mobility/Gait unable to ambulate PLOF distances Functional Limitations- Recreation/ Swims with float between legs Hobbies to limit LE use due to pain PT-OP-C Subjective Start: 07/03/23 08:59 Freq: Status: Active Protocol: Document 07/15/23 10:34 MB (Rec: 07/15/23 11:39 MB [id number]) OP-PT Subjective Patient Comments Patient Comments Pt states that she has Garay fracture on her fifth metatarsal of left foot and she is supposed to have surgery on . She was told by Picco's office that she is then on hold for her TKA until cleared by Dr. Buchanan's office if she has the foot surgery. Her TKA surgeries are her priority for the year. PT-OP-D Balance Start: 07/03/23 08:59 Freq: Status: Active Protocol: Document 07/03/23 09:04 NM (Rec: 07/03/23 10:28 NM [id number]) Balance Tests Single Limb Standing Single Limb- Right 3 sec Single Limb- Left 1 sec PT-OP-E Functional Tests Start: 07/03/23 08:59 Freq: Status: Active Protocol: Document 07/03/23 09:04 NM (Rec: 07/03/23 10:28 NM [id number]) Functional Tests Five Times Sit to Stand Test Score 15.38 Comments audible clicking noise, limited depth PT-OP-F Manual Assessment Start: 07/03/23 08:59 Freq: Status: Active Protocol: Document 07/03/23 09:04 NM (Rec: 07/03/23 10:28 NM [id number]) Manual Assessments Soft Tissue Assessment Soft Tissue Mobility Assessment No tightness of quads or hamstrings. Tenderness of B posterior knees, palpable bulges. Joint Mobility Assessment Joint Mobility Assessment Minimal limitations in B hip AROM and PROM. Full knee AROM in flex and ext, pain with flexion. PT-OP-G Mobility & Gait Start: 07/03/23 08:59 Freq: Status: Active Protocol: Document 07/03/23 09:04 NM (Rec: 07/03/23 10:28 NM [id number]) OP Gait Assessment Gait Gait Assistance Required: Independent Distance (Feet) 200 Able to Maintain Weight Bearing Status Yes During Gait Assistive Devices Assistive Device None Orthotic/Prosthetic Devices or Brace: Yes Gait Deviations General Gait Pattern Antalgic,Decreased Stride Length Factors Limiting Gait Function Factors Limiting Gait Function Decreased Activity Tolerance, Pain Comments Gait Comments Decreased step time on LLE, antalgic gait. Pt wearing steel plate in L foot PT-OP-H Neuro Start: 07/03/23 08:59 Freq: Status: Active Protocol: Document 07/03/23 09:04 NM (Rec: 07/03/23 10:28 NM [id number]) Sensation Evaluation Gross Sensation Gross Sensation WNL Comments Summary Comments BLE equally intact to light touch sensation PT-OP-J Posture/Palpation/Skin Start: 07/03/23 08:59 Freq: Status: Active Protocol: Document 07/03/23 09:04 NM (Rec: 07/03/23 10:28 NM [id number]) Posture Evaluation Position Standing Evaluation View posterior, lateral Head/C-Spine Posture Forward Head L-Spine Posture Neutral Shoulder Posture (L) Rounded,(R) Rounded Scapula Posture (L) Neutral,(R) Neutral Arm Posture (L) Neutral,(R) Neutral Pelvis Posture Anteriorly Tilted Weight Distribution Weight Shifted Right,Decreased Wt.Bear on (L) Hip Posture (L) Neutral,(R) Neutral Knee Posture (L) Genu Valgus,(R) Genu Valgus Patellar Posture (L) Superior,(R) Superior Ankle/Foot Posture (L) Supinated,(R) Supinated Foot Arch (L) High Arch,(R) High Arch Palpation Assessment Location R knee Palpation Location posterior, medial/lateral joint line, patella, patellar tendon Palpation Findings Tenderness Palpation Details Palpable bulge behind knee; minimal tenderness and slight bulge at pes anserinus. Patella ge. Knee mildly swollen but comparable L knee L knee Palpation Location posterior, medial/lateral joint line, patella, patellar tendon Palpation Findings Tenderness Palpation Details Palpable bulge behind knee; minimal tenderness along lateral joint line. Patella ge. Knee mildly swollen but comparable R knee PT-OP-K Range of Motion Start: 07/03/23 08:59 Freq: Status: Active Protocol: Document 07/03/23 09:04 NM (Rec: 07/03/23 10:28 NM [id number]) Hip Goniometric Range of Motion Hip Left Testing Position Supine Flexion w/Knee Flexed 105 Straight Leg Raise 170 Extension 15 Abduction 20 Internal Rotation 33 External Rotation 24 Right Testing Position Supine Flexion w/Knee Flexed 115 Straight Leg Raise 170 Extension 15 Abduction 20 Internal Rotation 30 External Rotation 30 Knee Goniometric Range of Motion Knee Left Patient Position Supine Flexion Active (degrees) 120 Extension Active (degrees) 0 Comments Reports min pain with flexion Right Patient Position Supine Flexion Active (degrees) 125 Extension Active (degrees) 0 Comments Reports min pain with flexion Ankle and Foot Goniometric Range of Motion Ankle and Foot Left Testing Position Sitting Dorsiflexion with Knee Flexed 5 Plantarflexion 25 Right Testing Position Sitting Dorsiflexion with Knee Flexed 5 Plantarflexion 20 PT-OP-M Strength Start: 07/03/23 08:59 Freq: Status: Active Protocol: Document 07/03/23 09:04 NM (Rec: 07/03/23 10:28 NM [id number]) Hip Strength Hip Manual Muscle Testing Left Flexion (L2) 4 Good Extension (S1) 4 Good Abduction 4- Good- Adduction 4- Good- External Rotation 4- Good- Internal Rotation 4- Good- Right Flexion (L2) 4 Good Extension (S1) 4 Good Abduction 4 Good Adduction 4 Good External Rotation 4- Good- Internal Rotation 4- Good- Knee Strength Knee Manual Muscle Testing Right Flexion (S2) 4 Good Extension (L3) 4 Good Comments Min pain with resisted motions Left Flexion (S2) 4 Good Extension (L3) 4 Good Comments Min pain with resisted motions PT-OP-Q Treatments Start: 07/03/23 08:59 Freq: Status: Active Protocol: Document 07/15/23 10:34 MB (Rec: 07/15/23 11:39 MB [id number]) Therapeutic Exercises Supine Exercises Supine post-op exercises Comments APs, QS, HS, passive extension , SAQ, SLR Sitting Exercises Knee flexion in sitting Comments To work knee flexion post-op Gait Training Gait Activity RW training Comments Ed pt in proper height to set up RW, proper stepping pattern forward and backwards, proper stair training, up with the non-surgical foot first and down with the surgical foot first Self-Care/Home Management Treatment Education Other Education Places for borrowing DME: [employer] for RW and BSC; extensive discussion about foot injury and surgery, TKA surgery with regards to therapy plan and appointments and pt to head to Dr. Buchanan's office after PT. Ed pt to make sure that she rests with surgical leg flat after treatment and no pillow under knee. Ed patient in benefits of ice post-op. PT-OP-T Assessment and Plan Start: 07/03/23 08:59 Freq: Status: Active Protocol: Document 07/15/23 10:34 MB (Rec: 07/15/23 11:39 MB [id number]) Physical Therapy Assessment Rehab Potential Rehabilitation Potential Good Evaluation Complexity Number of Personal Factors/Comorbidities 3 or More Number of Body Systems Impaired 3 Clinical Presentation at Evaluation Evolving Impairments Impairments Activity Tolerance,Balance, Coordination,Edema,Functional Activities,Functional Mobility ,Gait,Pain,Posture,ROM, Sensation,Soft Tissue Mobility ,Strength Goals One Impairment HEP [place] Cleaner Goal (LTG) Pt will reports compliance with HEP at least 3x/wk to demonstrate understanding of exercises and independence prior to TKA. LTG Duration 12 weeks Assessment Summary Assessment Pt with reports that she is scheduled for left foot surgery with Dr. Laurent in three days and she was told that her TKA may then be put on hold at Dr. Tamayo's office. She is going to follow-up with Dr. Laurent's about the foot surgery after PT today. She would like to keep future scheduled appointments starting on 09/13/23 which would be her post-op appointment after currently scheduled TKA on 09/10/23. Will wait to hear what the plan is . Extended plan out to 09/13/23 . Ed pt in post-op exercises, RW use, other TKA post-op training today. Physical Therapy Plan Frequency and Duration Frequency of Treatment 1-2x/wk Duration of treatment (weeks) 8 Plan of Care Start Date 07/15/23 Plan of Care End Date 09/13/23 Therapeutic Interventions Therapeutic Interventions Balance Training,Gait Training ,Home Exercise Program,Joint Mobilizations,Manual Therapy, Neuromuscular Re-education, Orthotic/Prosthetic Management ,Patient/Caregiver Education, Self-Care/Home Management, Sensory Integration,Soft Tissue Mobilization,Taping, Therapeutic Activities, Therapeutic Exercises Modalities Cold Pack/Ice Massage,Hot Packs Next Visit Focus/Plan Next Note Type Re-Evaluation Next Visit Plan 09/13/23 is currently the post- op visit
--- NOTE | 2023-07-15 11:40 | PT.OPPOC ---
Physical, Occupational & Speech Therapy At [facility] Current Diagnoses Unilateral primary osteoarthritis, left knee (07/15/23) Visit Care Team Role Provider Type Lenora Martin PA-C Family Provider Advanced Stake Driver Primary Care Provider Specialty: Medical Wound Care Address: [address] [place] [address], [id number] Email: [email or web address] Santy Tamayo DO Attending Provider Non-Staff Referring Provider Specialty: Orthopedics Address: [address] [place], [address] Email: Plan Of Care PT-OP-T Assessment and Plan Start: 07/03/23 08:59 Freq: Status: Active Protocol: Document 07/15/23 10:34 MB (Rec: 07/15/23 11:39 MB [id number]) Physical Therapy Assessment Rehab Potential Rehabilitation Potential Good Evaluation Complexity Number of Personal Factors/Comorbidities 3 or More Number of Body Systems Impaired 3 Clinical Presentation at Evaluation Evolving Impairments Impairments Activity Tolerance,Balance, Coordination,Edema,Functional Activities,Functional Mobility ,Gait,Pain,Posture,ROM, Sensation,Soft Tissue Mobility ,Strength Goals One Impairment HEP Halfway Goal (LTG) Pt will reports compliance with HEP at least 3x/wk to demonstrate understanding of exercises and independence prior to TKA. LTG Duration 12 weeks Assessment Summary Assessment Pt with reports that she is scheduled for left foot surgery with Dr. Laurent in three days and she was told that her TKA may then be put on hold at Dr. Tamayo's office. She is going to follow-up with Dr. Laurent's about the foot surgery after PT today. She would like to keep future scheduled appointments starting on 09/13/23 which would be her post-op appointment after currently scheduled TKA on 09/10/23. Will wait to hear what the plan is . Extended plan out to 09/13/23 . Ed pt in post-op exercises, RW use, other TKA post-op training today. Physical Therapy Plan Frequency and Duration Frequency of Treatment 1-2x/wk Duration of treatment (weeks) 8 Plan of Care Start Date 07/15/23 Plan of Care End Date 09/13/23 Therapeutic Interventions Therapeutic Interventions Balance Training,Gait Training ,Home Exercise Program,Joint Mobilizations,Manual Therapy, Neuromuscular Re-education, Orthotic/Prosthetic Management ,Patient/Caregiver Education, Self-Care/Home Management, Sensory Integration,Soft Tissue Mobilization,Taping, Therapeutic Activities, Therapeutic Exercises Modalities Cold Pack/Ice Massage,Hot Packs Next Visit Focus/Plan Next Note Type Re-Evaluation Next Visit Plan 09/13/23 is currently the post- op visit Plan of Care Dates Plan of Care Start Date 07/15/23 Plan of Care End Date 09/13/23 Electronically Signed by: Vicki Ortiz, PT 07/15/23 [id number] If you are in agreement with this Plan of Care, please return a signed and dated copy. I have reviewed this Plan of Care and certify that the skilled therapy services above are required to meet the patient?s needs. Physician Signature Date Printed Name and Credentials Clinical Instructor Signature Printed Name and Credentials
--- NOTE | 2023-07-30 14:29 | PT.OPDS ---
Current Diagnoses Unilateral primary osteoarthritis, left knee (07/15/23) Visit Care Team Role Provider Type Lenora Martin PA-C Family Provider Advanced Internal Grinder Set Up Operator Primary Care Provider Specialty: Medical Wound Care Address: [address] [place] [address], [id number] Email: [email or web address] Santy Tamayo DO Attending Provider Non-Staff Referring Provider Specialty: Orthopedics Address: [address] [place] [address], [phone] Email: Visit Number Visit Number 2 Discharge Summary PT-OP-B Current Condition Start: 07/03/23 08:59 Freq: Status: Active Protocol: Document 07/03/23 09:04 NM (Rec: 07/03/23 10:28 NM [id number]) Current Condition History of Current Condition Onset Date 10 years Current Complaints B knee pain History of Current Condition Pt presents to clinic with B knee pain s/p dx of B knee OA for the past 10 years. She is planning on having both knees replaced in 2023, L knee in and R knee later in 2023. She reports that her knees feel equally limited. Pt is very active, performing daily swimming, ambulation, climbing /hiking. She has received several cortisone injections for B knee pain, most recently in Mar 2023. Hx of B lazo's cysts. Reports most difficulty with squatting, walking down hill, climbing due to B knee pain. Supposed to be wearing boot, but wearing steel plate. In the fall of 2022, pt got a stress fracture of her L 5th metatarsal from walking in [place], reporting that she overdid it. She ignored the pain for several weeks before getting an xray in 05/2023, revealing the stress fracture. She is supposed to be wearing a boot, but reports that it gave her more pain in her back /hips, so she stopped wearing it. Instead, she wearing hiking boots and a steel foot plate. Pt is scheduled to have surgery on 07/18/23 for her L foot with Dr. Mabry. 1/2 pain normally, 3/4 worse, before cortisone shot 12/05. B lazo's cysts, M/L pain. Difficulty: squat, walking down hill, sleep. 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 Baseline Function- Recreation/Hobbies swim , walk 1-1.5 hr, climb mountain; yoga; bike ride Current Functional Impairments (Reported) Functional Limitations- Mobility/Gait unable to ambulate PLOF distances Functional Limitations- Recreation/ Swims with float between legs Hobbies to limit LE use due to pain PT-OP-C Subjective Start: 07/03/23 08:59 Freq: Status: Active Protocol: Document 07/15/23 10:34 MB (Rec: 07/15/23 11:39 MB [id number]) OP-PT Subjective Patient Comments Patient Comments Pt states that she has Garay fracture on her fifth metatarsal of left foot and she is supposed to have surgery on . She was told by Picco's office that she is then on hold for her TKA until cleared by Dr. Buchanan's office if she has the foot surgery. Her TKA surgeries are her priority for the year. PT-OP-D Balance Start: 07/03/23 08:59 Freq: Status: Active Protocol: Document 07/03/23 09:04 NM (Rec: 07/03/23 10:28 NM [id number]) Balance Tests Single Limb Standing Single Limb- Right 3 sec Single Limb- Left 1 sec PT-OP-E Functional Tests Start: 07/03/23 08:59 Freq: Status: Active Protocol: Document 07/03/23 09:04 NM (Rec: 07/03/23 10:28 NM [id number]) Functional Tests Five Times Sit to Stand Test Score 15.38 Comments audible clicking noise, limited depth PT-OP-F Manual Assessment Start: 07/03/23 08:59 Freq: Status: Active Protocol: Document 07/03/23 09:04 NM (Rec: 07/03/23 10:28 NM [id number]) Manual Assessments Soft Tissue Assessment Soft Tissue Mobility Assessment No tightness of quads or hamstrings. Tenderness of B posterior knees, palpable bulges. Joint Mobility Assessment Joint Mobility Assessment Minimal limitations in B hip AROM and PROM. Full knee AROM in flex and ext, pain with flexion. PT-OP-G Mobility & Gait Start: 07/03/23 08:59 Freq: Status: Active Protocol: Document 07/03/23 09:04 NM (Rec: 07/03/23 10:28 NM [id number]) OP Gait Assessment Gait Gait Assistance Required: Independent Distance (Feet) 200 Able to Maintain Weight Bearing Status Yes During Gait Assistive Devices Assistive Device None Orthotic/Prosthetic Devices or Brace: Yes Gait Deviations General Gait Pattern Antalgic,Decreased Stride Length Factors Limiting Gait Function Factors Limiting Gait Function Decreased Activity Tolerance, Pain Comments Gait Comments Decreased step time on LLE, antalgic gait. Pt wearing steel plate in L foot PT-OP-H Neuro Start: 07/03/23 08:59 Freq: Status: Active Protocol: Document 07/03/23 09:04 NM (Rec: 07/03/23 10:28 NM [id number]) Sensation Evaluation Gross Sensation Gross Sensation WNL Comments Summary Comments BLE equally intact to light touch sensation PT-OP-J Posture/Palpation/Skin Start: 07/03/23 08:59 Freq: Status: Active Protocol: Document 07/03/23 09:04 NM (Rec: 07/03/23 10:28 NM [id number]) Posture Evaluation Position Standing Evaluation View posterior, lateral Head/C-Spine Posture Forward Head L-Spine Posture Neutral Shoulder Posture (L) Rounded,(R) Rounded Scapula Posture (L) Neutral,(R) Neutral Arm Posture (L) Neutral,(R) Neutral Pelvis Posture Anteriorly Tilted Weight Distribution Weight Shifted Right,Decreased Wt.Bear on (L) Hip Posture (L) Neutral,(R) Neutral Knee Posture (L) Genu Valgus,(R) Genu Valgus Patellar Posture (L) Superior,(R) Superior Ankle/Foot Posture (L) Supinated,(R) Supinated Foot Arch (L) High Arch,(R) High Arch Palpation Assessment Location R knee Palpation Location posterior, medial/lateral joint line, patella, patellar tendon Palpation Findings Tenderness Palpation Details Palpable bulge behind knee; minimal tenderness and slight bulge at pes anserinus. Patella ge. Knee mildly swollen but comparable L knee L knee Palpation Location posterior, medial/lateral joint line, patella, patellar tendon Palpation Findings Tenderness Palpation Details Palpable bulge behind knee; minimal tenderness along lateral joint line. Patella ge. Knee mildly swollen but comparable R knee PT-OP-K Range of Motion Start: 07/03/23 08:59 Freq: Status: Active Protocol: Document 07/03/23 09:04 NM (Rec: 07/03/23 10:28 NM [id number]) Hip Goniometric Range of Motion Hip Left Testing Position Supine Flexion w/Knee Flexed 105 Straight Leg Raise 170 Extension 15 Abduction 20 Internal Rotation 33 External Rotation 24 Right Testing Position Supine Flexion w/Knee Flexed 115 Straight Leg Raise 170 Extension 15 Abduction 20 Internal Rotation 30 External Rotation 30 Knee Goniometric Range of Motion Knee Left Patient Position Supine Flexion Active (degrees) 120 Extension Active (degrees) 0 Comments Reports min pain with flexion Right Patient Position Supine Flexion Active (degrees) 125 Extension Active (degrees) 0 Comments Reports min pain with flexion Ankle and Foot Goniometric Range of Motion Ankle and Foot Left Testing Position Sitting Dorsiflexion with Knee Flexed 5 Plantarflexion 25 Right Testing Position Sitting Dorsiflexion with Knee Flexed 5 Plantarflexion 20 PT-OP-M Strength Start: 07/03/23 08:59 Freq: Status: Active Protocol: Document 07/03/23 09:04 NM (Rec: 07/03/23 10:28 NM [id number]) Hip Strength Hip Manual Muscle Testing Left Flexion (L2) 4 Good Extension (S1) 4 Good Abduction 4- Good- Adduction 4- Good- External Rotation 4- Good- Internal Rotation 4- Good- Right Flexion (L2) 4 Good Extension (S1) 4 Good Abduction 4 Good Adduction 4 Good External Rotation 4- Good- Internal Rotation 4- Good- Knee Strength Knee Manual Muscle Testing Right Flexion (S2) 4 Good Extension (L3) 4 Good Comments Min pain with resisted motions Left Flexion (S2) 4 Good Extension (L3) 4 Good Comments Min pain with resisted motions PT-OP-T Assessment and Plan Start: 07/03/23 08:59 Freq: Status: Active Protocol: Document 07/30/23 14:27 DCW (Rec: 07/30/23 14:29 DCW [id number]) Physical Therapy Assessment Assessment Summary Assessment Pt canceled scheduled appointments, reports planned surgeries have been delayed, and she doesn't know what will be happening when. Planning to return to the schedule when TKAs occur. Understands she will need a new referral at that time.
== END 2023-08-01 10:51 | disposition home or self-care (01) ==
LOC: PHYS 10:30
PROVIDERS: Family Provider Physician Assistant; PCP Physician Assistant; Referring Provider Orthopaedic Surgery; Visit Provider Orthopaedic Surgery
DX: M17.12 Unilateral primary osteoarthritis, left knee (principal)
CPT/HCPCS: 97110; 97116; 97161; 97535

== ENCOUNTER → 2024-02-12 11:21 | Outpatient (CLI) | payer MEDICARE, SELFPAY ==
[2024-02-12 12:03] LABS: Appearance Urine UA CLEAR; Bilirubin Urine UA NEGATIVE (NEGATIVE); Color Urine UA YELLOW; Glucose Urine UA NEGATIVE (Negative); Ketones Urine UA NEGATIVE (NEGATIVE); Leukocyte Esterase Urine UA 2+ (NEGATIVE); Nitrite Urine UA NEGATIVE (Negative); Occult Blood Urine UA TRACE-INTACT (Negative); Protein Urine UA NEGATIVE (Negative); Urobilinogen Urine UA 0.2 E.U./dL (0.2)
[2024-02-12 12:06] LABS: pH Urine UA 5.5 (4.5-8.0)
[2024-02-12 12:10] LABS: Urine Volume 10mL (spun)
[2024-02-12 12:11] LABS: Bacteria Urine None Seen; Culture Indicated Urine Specimen Cultured; RBC Urine None Seen (0-5/HPF); Squamous Epithelial Cell Urine 1-5 /HPF (0-5/HPF); WBC Urine 5-10/HPF (0-5/HPF)
== END ==
PROVIDERS: Family Provider Physician Assistant; PCP Family Medicine; Referring Provider Family Medicine; Visit Provider Family Medicine
DX: R30.0 Dysuria (principal)
CPT/HCPCS: 81001; 87077; 87086

== ENCOUNTER → 2024-02-20 14:36 | Outpatient (CLI) | payer MEDICARE, SELFPAY ==
--- NOTE | 2024-02-20 14:37 | DI.MG.S_ITS ---
BILATERAL DIGITAL SCREENING MAMMOGRAM 3D/2D WITH CAD: 02/20/2024 CLINICAL: Routine screening. Family history of breast cancer. Comparison is made to exams dated: 02/14/2023 mammogram, 11/07/2021 mammogram, and 10/29/2020 mammogram - [facility]. There are scattered areas of fibroglandular density in both breasts (category b / 25%-50% glandular tissue). Current study was also evaluated with a Computer Aided Detection (CAD) system. No significant masses, calcifications, or other findings are seen in either breast. There has been no significant interval change. IMPRESSION: NEGATIVE There is no mammographic evidence of malignancy. A 1 year screening mammogram is recommended. Based on the Tyrer Cuzick model (a risk assessment model) the patient's lifetime risk is 9.8% and her 10 year risk is 5.5%. According to the ACR, ACS, and NCCN guidelines, an annual breast MRI exam along with mammogram is recommended if the patient's lifetime risk is 20% or greater. This exam was interpreted at Station ID: [id number]. NOTE: For mammograms, a report in lay terms will be sent to the patient. Approximately 15% of breast malignancies will not be visualized mammographically. In the management of a palpable breast mass, a negative mammogram must not discourage biopsy of a clinically suspicious lesion. Electronically Signed By: Ish ruiz/marlene:02/21/2024 07:27:58 letter sent: Normal Exam ACR BI-RADS Category 1: Negative [id number]
== END ==
PROVIDERS: Family Provider Physician Assistant; PCP Family Medicine; Referring Provider Family Medicine; Visit Provider Family Medicine
DX: Z12.31 Encounter for screening mammogram for malignant neoplasm of breast (principal); Z80.3 Family history of malignant neoplasm of breast; R92.323 Mammographic fibroglandular density, bilateral breasts
CPT/HCPCS: 77063; 77067

== ENCOUNTER → 2024-02-26 10:01 | Outpatient (CLI) | payer MEDICARE, SELFPAY ==
[2024-02-26 11:07] LABS: BUN Creatinine Ratio 22.7 (6-22); Blood Urea Nitrogen 15 mg/dL (7-17); Calcium 9.5 mg/dL (8.4-10.2); Carbon Dioxide 23 mmol/L (22-32); Chloride 101 mmol/L (98-107); Cholesterol 198 mg/dL (140-199); Estimated Glomerular Filt Rate > 60 mL/min (>60); Glucose 95 mg/dL (80-110); HDL Cholesterol 71 mg/dL (40-60); HEMOLYSIS < 15 (0-50); LDL Cholesterol Calculated 92 mg/dL (<100); Sodium 135 mmol/L (137-145); Triglycerides 175 mg/dL (35-150)
[2024-02-26 16:34] LABS: Hep C Virus Ab w/Reflex Quant NEGATIVE s/c (NEGATIVE)
== END ==
PROVIDERS: Family Provider Physician Assistant; PCP Family Medicine; Referring Provider Family Medicine; Visit Provider Family Medicine
DX: I10 Essential (primary) hypertension (principal); Z00.00 Encounter for general adult medical examination without abnormal findings
CPT/HCPCS: 36415; 80048; 80061; 86803

== ENCOUNTER 2024-03-10 16:00 | Outpatient (RCR) | payer MEDICARE, SELFPAY ==
--- NOTE | 2024-01-30 16:29 | PT.OIE ---
Current Diagnoses Unilateral primary osteoarthritis, right knee (01/30/24) Unilateral primary osteoarthritis, left knee (01/30/24) Pain in right knee (01/30/24) Pain in left knee (01/30/24) Other abnormalities of gait and mobility (01/30/24) Past Medical History (Last Updated 09/20/23 @ 13:48 by Cali Dorsey MD) Ross cyst Bilateral chronic knee pain Bilateral primary osteoarthritis of knee Cervical cancer screening Chicken pox Easy bruisability Hypertension (~2015) Intermittent palpitations Knee problem (~2014) Measles Hwang's neuroma of both feet Osteopenia after menopause Pain, foot, left, chronic Plantar wart of left foot Right hip pain Traumatic ecchymosis of multiple sites of left lower extremity Vaginal dryness, menopausal Past Surgical History (Last Reviewed 09/20/23 @ 13:46 by Cali Dorsey MD) Anesthesia History of ankle surgery (~2002) History of appendectomy History of broken finger (~2009) History of foot surgery Visit Care Team Role Provider Type Jes Hardin DO Primary Care Provider Physician Specialty: Family Practice Address: [address] [place] [address], [address] [place] [address], [facility] Email: [email or web address] Lenora Martin PA-C Family Provider Advanced University Archivist Specialty: Medical Wound Care Address: [address] [place] [address], [facility] Email: [email or web address] Santy Tamayo DO Attending Provider Non-Staff Referring Provider Specialty: Orthopedics Address: [address] [place] [address], [id number] Email: Physical Therapy Initial Evaluation PT-OP-A Visit Information Start: 01/30/24 15:58 Freq: Status: Active Protocol: Document 01/30/24 11:15 DCW (Rec: 01/30/24 16:27 DCW [id number]) Out-Patient Physical Therapy Visit Information Visit Information Visit Type Initial Evaluation Visit Start Time 11:15 Visit Stop Time 12:00 Visit Number 1 Number of SUEDING MACHINE OPERATOR Visits 0 Evaluation Information Evaluation Date 01/30/24 PT-OP-B Current Condition Start: 01/30/24 15:58 Freq: Status: Active Protocol: Document 01/30/24 11:15 DCW (Rec: 01/30/24 16:27 DCW [id number]) Current Condition History of Current Condition Onset Date 01/23/24 Current Complaints R TKA History of Current Condition Pt is a 68 year old female presenting one week s/p R TKA. Pt overall feeling good following surgery, but admits sleeping has been brutal. Notes the knee itself is not too bad, but her inner thigh is very sore. Feels better when moving around throughout the day. Had been using FWW, but recently has been using axillary crutches, and over the last day or two, has been going without an AD when in her home. Notes she does not need to do any stairs, but does have stairs to her basement, which she has done a few times, and it went well. Notes her left knee is up next when she recovers from her right. PT-OP-C Subjective Start: 01/30/24 15:58 Freq: Status: Active Protocol: Document 01/30/24 11:15 DCW (Rec: 01/30/24 16:27 DCW [id number]) OP-PT Subjective Patient Comments Patient Comments Other than the pain at night, I'm pretty happy with it. Patient Reported Progress Improving Patient Questionnaires Lower Extremity Functional Scale LEFS Score 29/80 = 36.25% LEFS Impairment 60 to 79% Impaired (Score 17- 31) OP-PT Pain Assessment Location R knee Pain Location Details R knee Intensity 4 Variations/Patterns Notes inner thigh is 6-7/10 at night PT-OP-G Mobility & Gait Start: 01/30/24 16:27 Freq: Status: Active Protocol: Document 01/30/24 11:15 DCW (Rec: 01/30/24 16:28 DCW [id number]) OP Gait Assessment Gait Gait Assistance Required: Independent Assistive Devices Assistive Device Axillary Crutches Gait Deviations General Gait Pattern Antalgic Comments Gait Comments Mild antalgia /c axillary crutches, two-point gait pattern. good clearance and stride length. Trial of SPC, minimal antalgia, increased path deviation, mild LOB self- corrected. PT-OP-K Range of Motion Start: 01/30/24 15:58 Freq: Status: Active Protocol: Document 01/30/24 11:15 DCW (Rec: 01/30/24 16:27 DCW [id number]) Knee Goniometric Range of Motion Knee Right Patient Position Supine Flexion Active (degrees) 95 Extension Active (degrees) 4 Comments 12? extension lag Left Patient Position Sitting Flexion Active (degrees) 118 Extension Active (degrees) 0 PT-OP-M Strength Start: 01/30/24 15:58 Freq: Status: Active Protocol: Document 01/30/24 11:15 DCW (Rec: 01/30/24 16:27 DCW [id number]) Knee Strength Knee Manual Muscle Testing Right Flexion (S2) 3+ Fair+ Extension (L3) 3+ Fair+ Left Flexion (S2) 4+ Good+ Extension (L3) 4+ Good+ PT-OP-Q Treatments Start: 01/30/24 15:58 Freq: Status: Active Protocol: Document 01/30/24 11:15 DCW (Rec: 01/30/24 16:27 DCW [id number]) Cardio Equipment Recumbent Bicycle Duration (Minutes) 5 Seat Position 7 Other Partial rotations Therapeutic Exercises Supine Exercises ITB stretch Supine Exercise Name ITB stretch /c strap Side right Adductor stretch Supine Exercise Name Adductor stretch /c strap Side right PT-OP-T Assessment and Plan Start: 01/30/24 15:58 Freq: Status: Active Protocol: Document 01/30/24 11:15 DCW (Rec: 01/30/24 16:27 DCW [id number]) Physical Therapy Assessment Rehab Potential Rehabilitation Potential Excellent Evaluation Complexity Number of Personal Factors/Comorbidities 1-2 Number of Body Systems Impaired 4 or More Clinical Presentation at Evaluation Stable Impairments Impairments Activity Tolerance,Functional Activities,Functional Mobility ,Gait,Pain,ROM,Strength Goals Three Impairment Pt exhibits right quad weakness Assembler Unit Goal (LTG) Pt to demonstrate ability to perform full R SLR with no extension lag in order to show increased quad strength LTG Duration 03/31/24 Two Impairment Pt presents with limited right knee ROM, 4?-95? Assembler Unit Goal (LTG) Pt to improve right knee AROM to 0?-120? in order to return functional mobility to prior level of function LTG Duration 03/31/24 One Impairment Pt does not have an appropriate home exercise program Short Term Goal (STG) Pt to be independent and compliant with an appropriate HEP STG Duration 03/01/24 Assessment Summary Assessment Pt presents as expected to skilled therapy one week s/p right TKA. Pt doing very well overall, ROM excellent for one week out at 4?-95?. Gait doing well, still slight antalgia using axillary crutches and SPC, although at this point, left knee and foot appear to be creating more antalgic gait than what right TKA is. Pt understands importance or continuing to use AD until able to ambulate without ongoing limp. Pt doing well with post-op HEP so far, added adductor and ITB stretching to help decrease leg pain at night secondary to cramping. Pt should benefit from skilled therapeutic intervention focusing on gait, ROM, and strength, both in surgical right leg, and to improve function of pre-op left knee to hopefully increase potential outcomes. Physical Therapy Plan Frequency and Duration Frequency of Treatment 2x/Week Plan of Care Start Date 01/30/24 Plan of Care End Date 03/31/24 Therapeutic Interventions Therapeutic Interventions Balance Training,Gait Training ,Home Exercise Program,Joint Mobilizations,Manual Therapy, Neuromuscular Re-education, Patient/Caregiver Education, Self-Care/Home Management,Soft Tissue Mobilization, Therapeutic Activities, Therapeutic Exercises Modalities Cold Pack/Ice Massage,Electric Stimulation,Hot Packs, Ultrasound Next Visit Focus/Plan Next Note Type Treatment Note Next Visit Plan ROM, STM, joint mobs, strengthening, gait training
--- NOTE | 2024-01-30 16:29 | PT.OPPOC ---
Physical, Occupational & Speech Therapy At [facility] Current Diagnoses Unilateral primary osteoarthritis, right knee (01/30/24) Unilateral primary osteoarthritis, left knee (01/30/24) Pain in right knee (01/30/24) Pain in left knee (01/30/24) Other abnormalities of gait and mobility (01/30/24) Visit Care Team Role Provider Type Jes Hardin DO Primary Care Provider Physician Specialty: Family Practice Address: [address] [place] [address], [address], [place], [address] Email: [email or web address] Lenora Martin PA-C Family Provider Advanced Community Specialist Specialty: Medical Wound Care Address: [address] [place] [address], [address] Email: [email or web address] Santy Tamayo DO Attending Provider Non-Staff Referring Provider Specialty: Orthopedics Address: [address] [place] [address], [id number] Email: Plan Of Care PT-OP-B Current Condition Start: 01/30/24 15:58 Freq: Status: Active Protocol: Document 01/30/24 11:15 DCW (Rec: 01/30/24 16:27 DCW [id number]) Current Condition History of Current Condition Onset Date 01/23/24 Current Complaints R TKA History of Current Condition Pt is a 68 year old female presenting one week s/p R TKA. Pt overall feeling good following surgery, but admits sleeping has been brutal. Notes the knee itself is not too bad, but her inner thigh is very sore. Feels better when moving around throughout the day. Had been using FWW, but recently has been using axillary crutches, and over the last day or two, has been going without an AD when in her home. Notes she does not need to do any stairs, but does have stairs to her basement, which she has done a few times, and it went well. Notes her left knee is up next when she recovers from her right. PT-OP-T Assessment and Plan Start: 01/30/24 15:58 Freq: Status: Active Protocol: Document 01/30/24 11:15 DCW (Rec: 01/30/24 16:27 DCW [id number]) Physical Therapy Assessment Rehab Potential Rehabilitation Potential Excellent Evaluation Complexity Number of Personal Factors/Comorbidities 1-2 Number of Body Systems Impaired 4 or More Clinical Presentation at Evaluation Stable Impairments Impairments Activity Tolerance,Functional Activities,Functional Mobility ,Gait,Pain,ROM,Strength Goals Three Impairment Pt exhibits right quad weakness Insole Buffer Goal (LTG) Pt to demonstrate ability to perform full R SLR with no extension lag in order to show increased quad strength LTG Duration 03/31/24 Two Impairment Pt presents with limited right knee ROM, 4?-95? Mcfp Goal (LTG) Pt to improve right knee AROM to 0?-120? in order to return functional mobility to prior level of function LTG Duration 03/31/24 One Impairment Pt does not have an appropriate home exercise program Short Term Goal (STG) Pt to be independent and compliant with an appropriate HEP STG Duration 03/01/24 Assessment Summary Assessment Pt presents as expected to skilled therapy one week s/p right TKA. Pt doing very well overall, ROM excellent for one week out at 4?-95?. Gait doing well, still slight antalgia using axillary crutches and SPC, although at this point, left knee and foot appear to be creating more antalgic gait than what right TKA is. Pt understands importance or continuing to use AD until able to ambulate without ongoing limp. Pt doing well with post-op HEP so far, added adductor and ITB stretching to help decrease leg pain at night secondary to cramping. Pt should benefit from skilled therapeutic intervention focusing on gait, ROM, and strength, both in surgical right leg, and to improve function of pre-op left knee to hopefully increase potential outcomes. Physical Therapy Plan Frequency and Duration Frequency of Treatment 2x/Week Plan of Care Start Date 01/30/24 Plan of Care End Date 03/31/24 Therapeutic Interventions Therapeutic Interventions Balance Training,Gait Training ,Home Exercise Program,Joint Mobilizations,Manual Therapy, Neuromuscular Re-education, Patient/Caregiver Education, Self-Care/Home Management,Soft Tissue Mobilization, Therapeutic Activities, Therapeutic Exercises Modalities Cold Pack/Ice Massage,Electric Stimulation,Hot Packs, Ultrasound Next Visit Focus/Plan Next Note Type Treatment Note Next Visit Plan ROM, STM, joint mobs, strengthening, gait training Plan of Care Dates Plan of Care Start Date 01/30/24 Plan of Care End Date 03/31/24 Electronically Signed by: Gregor Jesus, PT 01/30/24 1888 If you are in agreement with this Plan of Care, please return a signed and dated copy. I have reviewed this Plan of Care and certify that the skilled therapy services above are required to meet the patient?s needs. Physician Signature Date Printed Name and Credentials Clinical Instructor Signature Printed Name and Credentials
--- NOTE | 2024-02-04 14:29 | PT.OTN ---
Current Diagnoses Unilateral primary osteoarthritis, right knee (02/04/24) Unilateral primary osteoarthritis, left knee (02/04/24) Pain in right knee (02/04/24) Pain in left knee (02/04/24) Other abnormalities of gait and mobility (02/04/24) Physical Therapy Treatment Note PT-OP-A Visit Information Start: 01/30/24 15:58 Freq: Status: Active Protocol: Document 02/04/24 13:45 DCW (Rec: 02/04/24 14:29 DCW [id number]) Out-Patient Physical Therapy Visit Information Visit Information Visit Type Treatment Note Visit Start Time 13:45 Visit Stop Time 14:30 Visit Number 2 Number of LEASE ATTENDANT Visits 0 Evaluation Information Evaluation Date 01/30/24 PT-OP-B Current Condition Start: 01/30/24 15:58 Freq: Status: Active Protocol: Document 01/30/24 11:15 DCW (Rec: 01/30/24 16:27 DCW [id number]) Current Condition History of Current Condition Onset Date 01/23/24 Current Complaints R TKA History of Current Condition Pt is a 68 year old female presenting one week s/p R TKA. Pt overall feeling good following surgery, but admits sleeping has been brutal. Notes the knee itself is not too bad, but her inner thigh is very sore. Feels better when moving around throughout the day. Had been using FWW, but recently has been using axillary crutches, and over the last day or two, has been going without an AD when in her home. Notes she does not need to do any stairs, but does have stairs to her basement, which she has done a few times, and it went well. Notes her left knee is up next when she recovers from her right. PT-OP-C Subjective Start: 01/30/24 15:58 Freq: Status: Active Protocol: Document 02/04/24 13:45 DCW (Rec: 02/04/24 14:29 DCW [id number]) OP-PT Subjective Patient Comments Patient Comments Continues to struggle some with sleeping, last night she had a span of three hours straight sleeping, which is the longest she's had since surgery. PT-OP-G Mobility & Gait Start: 01/30/24 16:27 Freq: Status: Active Protocol: Document 01/30/24 11:15 DCW (Rec: 01/30/24 16:28 DCW [id number]) OP Gait Assessment Gait Gait Assistance Required: Independent Assistive Devices Assistive Device Axillary Crutches Gait Deviations General Gait Pattern Antalgic Comments Gait Comments Mild antalgia /c axillary crutches, two-point gait pattern. good clearance and stride length. Trial of SPC, minimal antalgia, increased path deviation, mild LOB self- corrected. PT-OP-K Range of Motion Start: 01/30/24 15:58 Freq: Status: Active Protocol: Document 01/30/24 11:15 DCW (Rec: 01/30/24 16:27 DCW [id number]) Knee Goniometric Range of Motion Knee Right Patient Position Supine Flexion Active (degrees) 95 Extension Active (degrees) 4 Comments 12? extension lag Left Patient Position Sitting Flexion Active (degrees) 118 Extension Active (degrees) 0 PT-OP-M Strength Start: 01/30/24 15:58 Freq: Status: Active Protocol: Document 01/30/24 11:15 DCW (Rec: 01/30/24 16:27 DCW [id number]) Knee Strength Knee Manual Muscle Testing Right Flexion (S2) 3+ Fair+ Extension (L3) 3+ Fair+ Left Flexion (S2) 4+ Good+ Extension (L3) 4+ Good+ PT-OP-Q Treatments Start: 01/30/24 15:58 Freq: Status: Active Protocol: Document 02/04/24 13:45 DCW (Rec: 02/04/24 14:29 DCW [id number]) Cardio Equipment Recumbent Bicycle Duration (Minutes) 5 Seat Position 7 Other Full rotations Gym Equipment Shuttle Recovery Bilateral Squats Resistance 50# Shuttle Recovery Platform Stable Therapeutic Exercises Supine Exercises Heel Slides Supine Exercise Name Heel slides on wall Side right Resistance 2# Sitting Exercises Hamstring Curls Sitting Exercise Name HS Curls Side right Standing Exercises TKE Standing Exercise Name TKE Side right Resistance Lv 2 Other Exercises Flexion Stretch Other Exercise Name Flexion Step Stretch Side right Manual Therapy Treatment Consent Patient gave verbal consent for manual Yes treatment Joint Mobilizations Patella Joint R Patella Direction Inf/Sup, Med/Lat Grade III PT-OP-T Assessment and Plan Start: 01/30/24 15:58 Freq: Status: Active Protocol: Document 02/04/24 13:45 DCW (Rec: 02/04/24 14:29 DCW [id number]) Physical Therapy Assessment Impairments Impairments Activity Tolerance,Functional Activities,Functional Mobility ,Gait,Pain,ROM,Strength Goals Three Impairment Pt exhibits right quad weakness Central Scheduler Goal (LTG) Pt to demonstrate ability to perform full R SLR with no extension lag in order to show increased quad strength LTG Duration 03/31/24 Two Impairment Pt presents with limited right knee ROM, 4?-95? Central Scheduler Goal (LTG) Pt to improve right knee AROM to 0?-120? in order to return functional mobility to prior level of function LTG Duration 03/31/24 One Impairment Pt does not have an appropriate home exercise program Short Term Goal (STG) Pt to be independent and compliant with an appropriate HEP STG Duration 03/01/24 Assessment Summary Assessment Pt tolerated treatment very well today, biggest current complaint is lingering pain in posterior knee and medial upper leg, which continues to limit sleep. Added TKE and HS curls to HEP. Doing well with ROM. Physical Therapy Plan Frequency and Duration Frequency of Treatment 2x/Week Plan of Care Start Date 01/30/24 Plan of Care End Date 03/31/24 Therapeutic Interventions Therapeutic Interventions Balance Training,Gait Training ,Home Exercise Program,Joint Mobilizations,Manual Therapy, Neuromuscular Re-education, Patient/Caregiver Education, Self-Care/Home Management,Soft Tissue Mobilization, Therapeutic Activities, Therapeutic Exercises Modalities Cold Pack/Ice Massage,Electric Stimulation,Hot Packs, Ultrasound Next Visit Focus/Plan Next Note Type Treatment Note Next Visit Plan ROM, STM, joint mobs, strengthening, gait training
--- NOTE | 2024-02-06 14:32 | PT.OTN ---
Current Diagnoses Unilateral primary osteoarthritis, right knee (02/06/24) Unilateral primary osteoarthritis, left knee (02/06/24) Pain in right knee (02/06/24) Pain in left knee (02/06/24) Other abnormalities of gait and mobility (02/06/24) Physical Therapy Treatment Note PT-OP-A Visit Information Start: 01/30/24 15:58 Freq: Status: Active Protocol: Document 02/06/24 13:45 DCW (Rec: 02/06/24 14:32 DCW [id number]) Out-Patient Physical Therapy Visit Information Visit Information Visit Type Treatment Note Visit Start Time 13:45 Visit Stop Time 14:30 Visit Number 3 Number of CABLE DISPATCHER Visits 0 Evaluation Information Evaluation Date 01/30/24 PT-OP-B Current Condition Start: 01/30/24 15:58 Freq: Status: Active Protocol: Document 01/30/24 11:15 DCW (Rec: 01/30/24 16:27 DCW [id number]) Current Condition History of Current Condition Onset Date 01/23/24 Current Complaints R TKA History of Current Condition Pt is a 68 year old female presenting one week s/p R TKA. Pt overall feeling good following surgery, but admits sleeping has been brutal. Notes the knee itself is not too bad, but her inner thigh is very sore. Feels better when moving around throughout the day. Had been using FWW, but recently has been using axillary crutches, and over the last day or two, has been going without an AD when in her home. Notes she does not need to do any stairs, but does have stairs to her basement, which she has done a few times, and it went well. Notes her left knee is up next when she recovers from her right. PT-OP-C Subjective Start: 01/30/24 15:58 Freq: Status: Active Protocol: Document 02/06/24 13:45 DCW (Rec: 02/06/24 14:32 DCW [id number]) OP-PT Subjective Patient Comments Patient Comments Pt continues to struggle with sleep secondary to pain, but otherwise feeling pretty good overall. PT-OP-G Mobility & Gait Start: 01/30/24 16:27 Freq: Status: Active Protocol: Document 01/30/24 11:15 DCW (Rec: 01/30/24 16:28 DCW [id number]) OP Gait Assessment Gait Gait Assistance Required: Independent Assistive Devices Assistive Device Axillary Crutches Gait Deviations General Gait Pattern Antalgic Comments Gait Comments Mild antalgia /c axillary crutches, two-point gait pattern. good clearance and stride length. Trial of SPC, minimal antalgia, increased path deviation, mild LOB self- corrected. PT-OP-K Range of Motion Start: 01/30/24 15:58 Freq: Status: Active Protocol: Document 01/30/24 11:15 DCW (Rec: 01/30/24 16:27 DCW [id number]) Knee Goniometric Range of Motion Knee Right Patient Position Supine Flexion Active (degrees) 95 Extension Active (degrees) 4 Comments 12? extension lag Left Patient Position Sitting Flexion Active (degrees) 118 Extension Active (degrees) 0 PT-OP-M Strength Start: 01/30/24 15:58 Freq: Status: Active Protocol: Document 01/30/24 11:15 DCW (Rec: 01/30/24 16:27 DC [id number]) Knee Strength Knee Manual Muscle Testing Right Flexion (S2) 3+ Fair+ Extension (L3) 3+ Fair+ Left Flexion (S2) 4+ Good+ Extension (L3) 4+ Good+ PT-OP-Q Treatments Start: 01/30/24 15:58 Freq: Status: Active Protocol: Document 02/06/24 13:45 DCW (Rec: 02/06/24 14:32 DCW [id number]) Cardio Equipment Recumbent Bicycle Duration (Minutes) 5 Resistance 2 Seat Position 5 Gym Equipment Shuttle Recovery Bilateral Squats Resistance 50# Shuttle Recovery Platform Stable Therapeutic Exercises Supine Exercises Heel Slides Supine Exercise Name Heel slides on wall Side right Resistance 4# Sidelying Exercises Hip Abduction Sidelying Exercise Name Hip Abduction Side right Resistance 4# Other Exercises Resisted Ambulation Other Exercise Name Resisted side-stepping Resistance Green loop Step-ups Other Exercise Name Step-ups/downs Side right Equipment Used 6 step Flexion Stretch Other Exercise Name Flexion Step Stretch Side right Manual Therapy Treatment Consent Patient gave verbal consent for manual Yes treatment Joint Mobilizations Knee Joint R knee Direction A<->P Grade III Patella Joint R Patella Direction Inf/Sup, Med/Lat Grade III PT-OP-T Assessment and Plan Start: 01/30/24 15:58 Freq: Status: Active Protocol: Document 02/06/24 13:45 DCW (Rec: 02/06/24 14:32 DCW [id number]) Physical Therapy Assessment Impairments Impairments Activity Tolerance,Functional Activities,Functional Mobility ,Gait,Pain,ROM,Strength Goals Three Impairment Pt exhibits right quad weakness Mcc Goal (LTG) Pt to demonstrate ability to perform full R SLR with no extension lag in order to show increased quad strength LTG Duration 03/31/24 Two Impairment Pt presents with limited right knee ROM, 4?-95? Mcc Goal (LTG) Pt to improve right knee AROM to 0?-120? in order to return functional mobility to prior level of function LTG Duration 03/31/24 One Impairment Pt does not have an appropriate home exercise program Short Term Goal (STG) Pt to be independent and compliant with an appropriate HEP STG Duration 03/01/24 Assessment Summary Assessment Pt showing fantastic progress, PROM measured today at 114? when on leg press. Continue to focus on improving strength and ROM. Did note on step-ups/ downs pt has a mild trendelenberg, may benefit from lateral hip strengthening . Physical Therapy Plan Frequency and Duration Frequency of Treatment 2x/Week Plan of Care Start Date 01/30/24 Plan of Care End Date 03/31/24 Therapeutic Interventions Therapeutic Interventions Balance Training,Gait Training ,Home Exercise Program,Joint Mobilizations,Manual Therapy, Neuromuscular Re-education, Patient/Caregiver Education, Self-Care/Home Management,Soft Tissue Mobilization, Therapeutic Activities, Therapeutic Exercises Modalities Cold Pack/Ice Massage,Electric Stimulation,Hot Packs, Ultrasound Next Visit Focus/Plan Next Note Type Treatment Note Next Visit Plan ROM, STM, joint mobs, strengthening, gait training
--- NOTE | 2024-02-11 14:36 | PT.OTN ---
Addendum entered and electronically signed by Natalia Brewer, TEREZA 02/11/24 15:13: Discussed continue to elevate RLE and CP for swelling reduction support. Original Note: Current Diagnoses Unilateral primary osteoarthritis, right knee (02/11/24) Unilateral primary osteoarthritis, left knee (02/11/24) Pain in right knee (02/11/24) Pain in left knee (02/11/24) Other abnormalities of gait and mobility (02/11/24) Physical Therapy Treatment Note PT-OP-A Visit Information Start: 01/30/24 15:58 Freq: Status: Active Protocol: Document 02/11/24 13:46 SP (Rec: 02/11/24 15:12 SP [id number]) Out-Patient Physical Therapy Visit Information Visit Information Visit Type Treatment Note Visit Start Time 13:46 Visit Stop Time 14:36 Visit Number 4 Number of HAND CROCHETER Visits 1 Evaluation Information Evaluation Date 01/30/24 PT-OP-B Current Condition Start: 01/30/24 15:58 Freq: Status: Active Protocol: Document 01/30/24 11:15 DCW (Rec: 01/30/24 16:27 DCW [id number]) Current Condition History of Current Condition Onset Date 01/23/24 Current Complaints R TKA History of Current Condition Pt is a 68 year old female presenting one week s/p R TKA. Pt overall feeling good following surgery, but admits sleeping has been brutal. Notes the knee itself is not too bad, but her inner thigh is very sore. Feels better when moving around throughout the day. Had been using FWW, but recently has been using axillary crutches, and over the last day or two, has been going without an AD when in her home. Notes she does not need to do any stairs, but does have stairs to her basement, which she has done a few times, and it went well. Notes her left knee is up next when she recovers from her right. PT-OP-C Subjective Start: 01/30/24 15:58 Freq: Status: Active Protocol: Document 02/11/24 13:46 SP (Rec: 02/11/24 15:12 SP [id number]) OP-PT Subjective Patient Comments Patient Comments Pt reports able to sleep more but had to resort to sleep on stomach with no adverse affects. Today is first day without pain medication, 36 hrs and only Tylenol this am. Able to receiprocal stepping up and down, light BUE support especially down. Able to do 15 SLR. PT-OP-G Mobility & Gait Start: 01/30/24 16:27 Freq: Status: Active Protocol: Document 01/30/24 11:15 DCW (Rec: 01/30/24 16:28 DCW [id number]) OP Gait Assessment Gait Gait Assistance Required: Independent Assistive Devices Assistive Device Axillary Crutches Gait Deviations General Gait Pattern Antalgic Comments Gait Comments Mild antalgia /c axillary crutches, two-point gait pattern. good clearance and stride length. Trial of SPC, minimal antalgia, increased path deviation, mild LOB self- corrected. PT-OP-K Range of Motion Start: 01/30/24 15:58 Freq: Status: Active Protocol: Document 02/11/24 13:46 SP (Rec: 02/11/24 15:12 SP [id number]) Knee Goniometric Range of Motion Knee Right Knee ROM WFL No Patient Position Supine Flexion Active (degrees) 121 Extension Active (degrees) 1 Comments AROM R knee supine: gain 4 deg ext (1*)and 26 deg flexion (121*)- after recumbent bike PT-OP-M Strength Start: 01/30/24 15:58 Freq: Status: Active Protocol: Document 01/30/24 11:15 DCW (Rec: 01/30/24 16:27 DCW [id number]) Knee Strength Knee Manual Muscle Testing Right Flexion (S2) 3+ Fair+ Extension (L3) 3+ Fair+ Left Flexion (S2) 4+ Good+ Extension (L3) 4+ Good+ PT-OP-Q Treatments Start: 01/30/24 15:58 Freq: Status: Active Protocol: Document 02/11/24 13:46 SP (Rec: 02/11/24 15:12 SP [id number]) Cardio Equipment Recumbent Bicycle Duration (Minutes) 5 Resistance 2 Seat Position 4 Other full revolutions Therapeutic Exercises Supine Exercises Modified Lawrence Stretch Supine Exercise Name trialed lower R leg off table Side right Resistance therapist support distal thigh Equipment Used KT LLE Reps/Minutes 15 SH Comments cued no LB arch, very tight R hip flexor- required HAND CROCHETER assist Sitting Exercises sit stand Sitting Exercise Name trialed in PT- suggested perform home higher height- declined HO Equipment Used 1 UE min support needed- mesh 18 chair Reps/Minutes 3 reps- quick descend Comments R ft fwd, scoot fwd front seat , L foot back under Standing Exercises calf stretch Standing Exercise Name DL, SL (opp LE on step support ): gastroc & Soleus Side right Equipment Used BHR support Reps/Minutes 30 SH x2 Comments cued slow heel lower painfree range Other Exercises self STMs Other Exercise Name Discussed self rolling pin: quad, HS, calf- not performed in PT Side right Equipment Used seated Comments as needed- has performed self past- knows gentle Step-ups Other Exercise Name Step-up/back down, lateral step ups Side bilateral Equipment Used 6 step light 1 hand HR fwd/ back, BUE on HR lateral Reps/Minutes x10 each Comments cued knee midline with forefoot/behind toes, heel drive, L ankle pron neutr Flexion Stretch Other Exercise Name Flexion Step Stretch- declined HO Side right Resistance AAROM R knee Equipment Used R foot on 2nd step, BUE HRs Reps/Minutes 3 SH x8 reps Comments cued R knee over toes but midline forefoot, keep heel down Manual Therapy Treatment Soft Tissue Mobilization R leg Body Location quad, TFL, Psoas Mobilization Type Myofascial Release Comments quad:lateral to medial rolling MF glide TFL: strumming/rolling Psoas: gentle sustained pressure /c breath- sensitive R calf Mobilization Type Myofascial Release Body Position Supine scar mobility Body Location R knee Mobilization Type Other Comments scar supported multidirectional manual and ed self application inferior 1/4 > mid/superior Joint Mobilizations R hip Direction Full leg supported, knee ext Grade II Body Position LSidelying Comments contract relax: isometric hip flexion supported R knee ext with AAROM into R hip extension. GOod feedback response less posterior pelvic discomfort. Knee Joint R knee Direction A<->P Grade III Patella Joint R Patella Direction Inf/Sup, Med/Lat Grade III PT-OP-T Assessment and Plan Start: 01/30/24 15:58 Freq: Status: Active Protocol: Document 02/11/24 13:46 SP (Rec: 02/11/24 15:12 SP [id number]) Physical Therapy Assessment Goals Three Impairment Pt exhibits right quad weakness Lawyers Goal (LTG) Pt to demonstrate ability to perform full R SLR with no extension lag in order to show increased quad strength LTG Duration 03/31/24 Two Impairment Pt presents with limited right knee ROM, 4?-95? Lawyers Goal (LTG) Pt to improve right knee AROM to 0?-120? in order to return functional mobility to prior level of function 02/11/24: PRogressing: supine 1 -121 deg AROM post recumbent bike. LTG Duration 03/31/24 progressing 02/11/24 One Impairment Pt does not have an appropriate home exercise program Short Term Goal (STG) Pt to be independent and compliant with an appropriate HEP STG Duration 03/01/24 Progress Towards Goals Progress Comments AROM R knee supine after Recumbent Bike: gain 4 deg ext (1*)and 26 deg flexion (121*) since eval and 7 deg since last visit 02/05. Assessment Summary Assessment Pt making AROM gains R knee flexion increased 7 deg since last tx. Provided manual R anterior Hip, AAROM R hip ext contract relax with improvement hip extension supported. Pt was able to increase R knee range on recumbent bike AAROM 1 knotch seat closer. Initiated R knee mobility, calf stretch and fwd /bwd/lateral step ups to allow progression in strengthening in standing functional ROM to support less UE support stair mgt. Trialed STS with light 1 hand assist 18 chair, uses momentum, R foot fwd. HAND CROCHETER discussed perform higher surface home and light support 1 UE, slow descend. Physical Therapy Plan Frequency and Duration Frequency of Treatment 2x/Week Plan of Care Start Date 01/30/24 Plan of Care End Date 03/31/24 Therapeutic Interventions Therapeutic Interventions Balance Training,Gait Training ,Home Exercise Program,Joint Mobilizations,Manual Therapy, Neuromuscular Re-education, Patient/Caregiver Education, Self-Care/Home Management,Soft Tissue Mobilization, Therapeutic Activities, Therapeutic Exercises Modalities Cold Pack/Ice Massage,Electric Stimulation,Hot Packs, Ultrasound Next Visit Focus/Plan Next Note Type Treatment Note Next Visit Plan Next: assess R hip flexor tightness, Possible R hip extension mobs. POC: ROM, STM, joint mobs, strengthening, gait training
--- NOTE | 2024-02-13 14:36 | PT.OTN ---
Current Diagnoses Unilateral primary osteoarthritis, right knee (02/13/24) Unilateral primary osteoarthritis, left knee (02/13/24) Pain in right knee (02/13/24) Pain in left knee (02/13/24) Other abnormalities of gait and mobility (02/13/24) Physical Therapy Treatment Note PT-OP-A Visit Information Start: 01/30/24 15:58 Freq: Status: Active Protocol: Document 02/13/24 13:45 DCW (Rec: 02/13/24 14:36 DCW [id number]) Out-Patient Physical Therapy Visit Information Visit Information Visit Type Treatment Note Visit Start Time 13:45 Visit Stop Time 14:30 Visit Number 5 Number of DINING ROOM MANAGER Visits 0 Evaluation Information Evaluation Date 01/30/24 PT-OP-B Current Condition Start: 01/30/24 15:58 Freq: Status: Active Protocol: Document 01/30/24 11:15 DCW (Rec: 01/30/24 16:27 DCW [id number]) Current Condition History of Current Condition Onset Date 01/23/24 Current Complaints R TKA History of Current Condition Pt is a 68 year old female presenting one week s/p R TKA. Pt overall feeling good following surgery, but admits sleeping has been brutal. Notes the knee itself is not too bad, but her inner thigh is very sore. Feels better when moving around throughout the day. Had been using FWW, but recently has been using axillary crutches, and over the last day or two, has been going without an AD when in her home. Notes she does not need to do any stairs, but does have stairs to her basement, which she has done a few times, and it went well. Notes her left knee is up next when she recovers from her right. PT-OP-C Subjective Start: 01/30/24 15:58 Freq: Status: Active Protocol: Document 02/13/24 13:45 DCW (Rec: 02/13/24 14:36 DCW [id number]) OP-PT Subjective Patient Comments Patient Comments Pt reports she has been having continuing pain since last visit, especially at night when trying to sleep. Notes she went for a walk earlier today, walked for ~.8 miles PT-OP-G Mobility & Gait Start: 01/30/24 16:27 Freq: Status: Active Protocol: Document 01/30/24 11:15 DCW (Rec: 01/30/24 16:28 DCW [id number]) OP Gait Assessment Gait Gait Assistance Required: Independent Assistive Devices Assistive Device Axillary Crutches Gait Deviations General Gait Pattern Antalgic Comments Gait Comments Mild antalgia /c axillary crutches, two-point gait pattern. good clearance and stride length. Trial of SPC, minimal antalgia, increased path deviation, mild LOB self- corrected. PT-OP-K Range of Motion Start: 01/30/24 15:58 Freq: Status: Active Protocol: Document 02/11/24 13:46 SP (Rec: 02/11/24 15:12 SP [id number]) Knee Goniometric Range of Motion Knee Right Knee ROM WFL No Patient Position Supine Flexion Active (degrees) 121 Extension Active (degrees) 1 Comments AROM R knee supine: gain 4 deg ext (1*)and 26 deg flexion (121*)- after recumbent bike PT-OP-M Strength Start: 01/30/24 15:58 Freq: Status: Active Protocol: Document 01/30/24 11:15 DCW (Rec: 01/30/24 16:27 DCW [id number]) Knee Strength Knee Manual Muscle Testing Right Flexion (S2) 3+ Fair+ Extension (L3) 3+ Fair+ Left Flexion (S2) 4+ Good+ Extension (L3) 4+ Good+ PT-OP-Q Treatments Start: 01/30/24 15:58 Freq: Status: Active Protocol: Document 02/13/24 13:45 DCW (Rec: 02/13/24 14:36 DCW [id number]) Cardio Equipment Recumbent Bicycle Duration (Minutes) 5 Resistance 6 Seat Position 4 Gym Equipment Shuttle Recovery Bilateral Squats Resistance 62#->50# Shuttle Recovery Platform Stable Reps/Time 118? flexion Shuttle Balance Red Details WBOS,Staggered Manual Therapy Treatment Soft Tissue Mobilization R calf Mobilization Type Myofascial Release Body Position Supine Joint Mobilizations Knee Joint R knee Direction A<->P Grade III Patella Joint R Patella Direction Inf/Sup, Med/Lat Grade III PT-OP-T Assessment and Plan Start: 01/30/24 15:58 Freq: Status: Active Protocol: Document 02/13/24 13:45 DCW (Rec: 02/13/24 14:36 DCW [id number]) Physical Therapy Assessment Impairments Impairments Activity Tolerance,Functional Activities,Functional Mobility ,Gait,Pain,ROM,Strength Goals Three Impairment Pt exhibits right quad weakness Welding Instructor Goal (LTG) Pt to demonstrate ability to perform full R SLR with no extension lag in order to show increased quad strength LTG Duration 03/31/24 Two Impairment Pt presents with limited right knee ROM, 4?-95? Welding Instructor Goal (LTG) Pt to improve right knee AROM to 0?-120? in order to return functional mobility to prior level of function LTG Duration 03/31/24 One Impairment Pt does not have an appropriate home exercise program Short Term Goal (STG) Pt to be independent and compliant with an appropriate HEP STG Duration 03/01/24 Assessment Summary Assessment Pt progressing well, has reached 120? AROM. Still struggling with pain, especially at night limiting sleep. Demonstrated difficulty with shuttle balance, noted increased pain in calf and knee. 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 Physical Therapy Plan Frequency and Duration Frequency of Treatment 2x/Week Plan of Care Start Date 01/30/24 Plan of Care End Date 03/31/24 Therapeutic Interventions Therapeutic Interventions Balance Training,Gait Training ,Home Exercise Program,Joint Mobilizations,Manual Therapy, Neuromuscular Re-education, Patient/Caregiver Education, Self-Care/Home Management,Soft Tissue Mobilization, Therapeutic Activities, Therapeutic Exercises Modalities Cold Pack/Ice Massage,Electric Stimulation,Hot Packs, Ultrasound Next Visit Focus/Plan Next Note Type Treatment Note Next Visit Plan Next: assess R hip flexor tightness, Possible R hip extension mobs. POC: ROM, STM, joint mobs, strengthening, gait training
--- NOTE | 2024-02-18 14:35 | PT.OTN ---
Current Diagnoses Unilateral primary osteoarthritis, right knee (02/18/24) Unilateral primary osteoarthritis, left knee (02/18/24) Pain in right knee (02/18/24) Pain in left knee (02/18/24) Other abnormalities of gait and mobility (02/18/24) Physical Therapy Treatment Note PT-OP-A Visit Information Start: 01/30/24 15:58 Freq: Status: Active Protocol: Document 02/18/24 13:46 SP (Rec: 02/18/24 14:37 SP [id number]) Out-Patient Physical Therapy Visit Information Visit Information Visit Type Treatment Note Visit Note 12/08 post eval Visit Start Time 13:46 Visit Stop Time 14:35 Visit Number 6 Number of SYSTEMS ENGINEERING MANAGER Visits 1 Evaluation Information Evaluation Date 01/30/24 PT-OP-B Current Condition Start: 01/30/24 15:58 Freq: Status: Active Protocol: Document 01/30/24 11:15 DCW (Rec: 01/30/24 16:27 DCW [id number]) Current Condition History of Current Condition Onset Date 01/23/24 Current Complaints R TKA History of Current Condition Pt is a 68 year old female presenting one week s/p R TKA. Pt overall feeling good following surgery, but admits sleeping has been brutal. Notes the knee itself is not too bad, but her inner thigh is very sore. Feels better when moving around throughout the day. Had been using FWW, but recently has been using axillary crutches, and over the last day or two, has been going without an AD when in her home. Notes she does not need to do any stairs, but does have stairs to her basement, which she has done a few times, and it went well. Notes her left knee is up next when she recovers from her right. PT-OP-C Subjective Start: 01/30/24 15:58 Freq: Status: Active Protocol: Document 02/18/24 13:46 SP (Rec: 02/18/24 14:37 SP [id number]) OP-PT Subjective Patient Comments Patient Comments Pt reports swelling going down in R knee, feeling little tendon clicking medial R knee bent to straighten. She was cleared for driving. She trialed many errands recently in 1 day approx 6 stops and R knee pretty sore. She has best sleep on stomach to allow R knee extension but is still not sleeping well due to R knee discomfort. Very stiff straightening when initially stands. PT-OP-G Mobility & Gait Start: 01/30/24 16:27 Freq: Status: Active Protocol: Document 01/30/24 11:15 DCW (Rec: 01/30/24 16:28 DCW [id number]) OP Gait Assessment Gait Gait Assistance Required: Independent Assistive Devices Assistive Device Axillary Crutches Gait Deviations General Gait Pattern Antalgic Comments Gait Comments Mild antalgia /c axillary crutches, two-point gait pattern. good clearance and stride length. Trial of SPC, minimal antalgia, increased path deviation, mild LOB self- corrected. PT-OP-K Range of Motion Start: 01/30/24 15:58 Freq: Status: Active Protocol: Document 02/18/24 13:46 SP (Rec: 02/18/24 14:37 SP [id number]) Knee Goniometric Range of Motion Knee Left Patient Position Supine Flexion Active (degrees) 125 Extension Active (degrees) 0 PT-OP-M Strength Start: 01/30/24 15:58 Freq: Status: Active Protocol: Document 01/30/24 11:15 DCW (Rec: 01/30/24 16:27 DCW [id number]) Knee Strength Knee Manual Muscle Testing Right Flexion (S2) 3+ Fair+ Extension (L3) 3+ Fair+ Left Flexion (S2) 4+ Good+ Extension (L3) 4+ Good+ PT-OP-Q Treatments Start: 01/30/24 15:58 Freq: Status: Active Protocol: Document 02/18/24 13:46 SP (Rec: 02/18/24 14:37 SP [id number]) Cardio Equipment Recumbent Bicycle Duration (Minutes) 3 Resistance 6 Seat Position 4 Bicycle (Upright) Duration (Minutes) 5 Resistance 6 Seat Position 8 Therapeutic Exercises Supine Exercises Fig 4 Supine Exercise Name Trialed in PT only Side right Resistance R ankle over L thigh Reps/Minutes 10 SH Comments no pain, adduction tension SLR Supine Exercise Name reviewed Side right Reps/Minutes 15 BID Comments good form, no lag Heel Slides Supine Exercise Name Heel slides on wall Side right Resistance 4# Standing Exercises HS stretch Standing Exercise Name after knee ROM TKE Standing Exercise Name TKE- added to HEP Side right Resistance Lv 2>3 anchored in door Equipment Used folded towel around back thigh Reps/Minutes 5 SH 5 reps, 10 reps Comments good quad tiring. Other Exercises squat functional flexion Other Exercise Name ball on cone transfer cross body Side bilateral Reps/Minutes 3 sets pods 2 laps Comments functional flexion apporo x90 deg R, audible friction in L knee, painfree B Flexion Stretch Other Exercise Name Flexion Step Stretch- declined HO Side right Resistance AAROM R knee approx 125 deg Equipment Used R foot on 2nd step, BUE HRs Reps/Minutes 2x10 3-5 SH Comments cued R knee over toes but midline forefoot, keep heel down Manual Therapy Treatment Soft Tissue Mobilization scar mobility Body Location R knee Mobilization Type Other Comments improved mobility distal and decreased thickness mid- superior Neuro Re-Education Treatment Balance Activities hurdles Surface 6hurdles + foam stones Equipment near rail PRN Reps/Duration x3 laps Comments cues for tall/ rhomboid fac/ knee flexion and DF /c slower wt shift into advanced LE improved stability receiprocal stepping Self-Care/Home Management Treatment Education Patient Education Body Mechanics,Home Exercise Program Other Education Discussed heel slides before get up to warm up R knee AROM and to improve proprioception walking away from bed and less quad tension reports. PT-OP-T Assessment and Plan Start: 01/30/24 15:58 Freq: Status: Active Protocol: Document 02/18/24 13:46 SP (Rec: 02/18/24 14:37 SP [id number]) Physical Therapy Assessment Goals Three Impairment Pt exhibits right quad weakness Mcc Goal (LTG) Pt to demonstrate ability to perform full R SLR with no extension lag in order to show increased quad strength 02/18/24: GOAL MET: performed 2x15 and performs home HEP no lag. LTG Duration 03/31/24 GOAL MET 02/18/24 Two Impairment Pt presents with limited right knee ROM, 4?-95? Mcc Goal (LTG) Pt to improve right knee AROM to 0?-120? in order to return functional mobility to prior level of function LTG Duration 03/31/24 One Impairment Pt does not have an appropriate home exercise program Short Term Goal (STG) Pt to be independent and compliant with an appropriate HEP 02/18/24: added TKE Lvl 3 TB. Continue R knee flexion AAROM on 2nd step support. STG Duration 03/01/24 progressing 02/18/24 Progress Towards Goals Progress Comments MET GOAL #3 able do SLR no lag . Assessment Summary Assessment 125 deg L knee flexion during R knee mobility on step and same active AROM measured hooklying. Pt improved functional squats with no pain and approx 90deg flexion R knee but audible jt friction on L, pnfree. Pt tolerated increase TKE resistance and added to HEP this tx for progress strength. Improved scar mobility noted today. Physical Therapy Plan Frequency and Duration Frequency of Treatment 2x/Week Plan of Care Start Date 01/30/24 Plan of Care End Date 03/31/24 Therapeutic Interventions Therapeutic Interventions Balance Training,Gait Training ,Home Exercise Program,Joint Mobilizations,Manual Therapy, Neuromuscular Re-education, Patient/Caregiver Education, Self-Care/Home Management,Soft Tissue Mobilization, Therapeutic Activities, Therapeutic Exercises Modalities Cold Pack/Ice Massage,Electric Stimulation,Hot Packs, Ultrasound Next Visit Focus/Plan Next Note Type Treatment Note Next Visit Plan Next: assess R hip flexor tightness, Possible R hip extension mobs. POC: ROM, STM, joint mobs, strengthening, gait training
--- NOTE | 2024-02-20 14:37 | PT.OTN ---
Current Diagnoses Unilateral primary osteoarthritis, right knee (02/20/24) Unilateral primary osteoarthritis, left knee (02/20/24) Pain in right knee (02/20/24) Pain in left knee (02/20/24) Other abnormalities of gait and mobility (02/20/24) Physical Therapy Treatment Note PT-OP-A Visit Information Start: 01/30/24 15:58 Freq: Status: Active Protocol: Document 02/20/24 13:45 DCW (Rec: 02/20/24 14:37 DCW [id number]) Out-Patient Physical Therapy Visit Information Visit Information Visit Type Treatment Note Visit Start Time 13:45 Visit Stop Time 14:30 Visit Number 7 Number of LOCOMOTIVE ENGINEER ELECTRIC Visits 0 Evaluation Information Evaluation Date 01/30/24 PT-OP-B Current Condition Start: 01/30/24 15:58 Freq: Status: Active Protocol: Document 01/30/24 11:15 DCW (Rec: 01/30/24 16:27 DCW [id number]) Current Condition History of Current Condition Onset Date 01/23/24 Current Complaints R TKA History of Current Condition Pt is a 68 year old female presenting one week s/p R TKA. Pt overall feeling good following surgery, but admits sleeping has been brutal. Notes the knee itself is not too bad, but her inner thigh is very sore. Feels better when moving around throughout the day. Had been using FWW, but recently has been using axillary crutches, and over the last day or two, has been going without an AD when in her home. Notes she does not need to do any stairs, but does have stairs to her basement, which she has done a few times, and it went well. Notes her left knee is up next when she recovers from her right. PT-OP-C Subjective Start: 01/30/24 15:58 Freq: Status: Active Protocol: Document 02/20/24 13:45 DCW (Rec: 02/20/24 14:37 DCW [id number]) OP-PT Subjective Patient Comments Patient Comments Doing well, same night-time pain,but no longer wearing compression stocking, no increased edema at this time. PT-OP-G Mobility & Gait Start: 01/30/24 16:27 Freq: Status: Active Protocol: Document 01/30/24 11:15 DCW (Rec: 01/30/24 16:28 DCW [id number]) OP Gait Assessment Gait Gait Assistance Required: Independent Assistive Devices Assistive Device Axillary Crutches Gait Deviations General Gait Pattern Antalgic Comments Gait Comments Mild antalgia /c axillary crutches, two-point gait pattern. good clearance and stride length. Trial of SPC, minimal antalgia, increased path deviation, mild LOB self- corrected. PT-OP-K Range of Motion Start: 01/30/24 15:58 Freq: Status: Active Protocol: Document 02/18/24 13:46 SP (Rec: 02/18/24 14:37 SP [id number]) Knee Goniometric Range of Motion Knee Left Patient Position Supine Flexion Active (degrees) 125 Extension Active (degrees) 0 PT-OP-M Strength Start: 01/30/24 15:58 Freq: Status: Active Protocol: Document 01/30/24 11:15 DCW (Rec: 01/30/24 16:27 DCW [id number]) Knee Strength Knee Manual Muscle Testing Right Flexion (S2) 3+ Fair+ Extension (L3) 3+ Fair+ Left Flexion (S2) 4+ Good+ Extension (L3) 4+ Good+ PT-OP-Q Treatments Start: 01/30/24 15:58 Freq: Status: Active Protocol: Document 02/20/24 13:45 DCW (Rec: 02/20/24 14:37 DCW [id number]) Cardio Equipment Recumbent Bicycle Duration (Minutes) 5 Resistance 6 Seat Position 4 Gym Equipment Shuttle Balance Red Details Staggered, Lateral Therapeutic Exercises Other Exercises Sliders Other Exercise Name SL squat /c furniture slider Therapeutic Activity Therapeutic Activity Floor Transfers Comments Down to/up from floor Manual Therapy Treatment Soft Tissue Mobilization scar mobility Body Location R knee Mobilization Type Other Neuro Re-Education Treatment Balance Activities Tandem Details Tandem Gait hurdles Surface 6hurdles + foam stones Equipment near rail PRN Reps/Duration x3 laps PT-OP-T Assessment and Plan Start: 01/30/24 15:58 Freq: Status: Active Protocol: Document 02/20/24 13:45 DCW (Rec: 02/20/24 14:37 DCW [id number]) Physical Therapy Assessment Impairments Impairments Activity Tolerance,Functional Activities,Functional Mobility ,Gait,Pain,ROM,Strength Goals Two Impairment Pt presents with limited right knee ROM, 4?-95? Fci Goal (LTG) Pt to improve right knee AROM to 0?-120? in order to return functional mobility to prior level of function LTG Duration 03/31/24 One Impairment Pt does not have an appropriate home exercise program Short Term Goal (STG) Pt to be independent and compliant with an appropriate HEP STG Duration 03/01/24 Assessment Summary Assessment Continues to do very well, performed floor transfers today with minimal difficulty. Spent some time working on balance, will likely do well with additional balance focus, but will likely decrease frequency to 1x/week Physical Therapy Plan Frequency and Duration Frequency of Treatment 2x/Week Plan of Care Start Date 01/30/24 Plan of Care End Date 03/31/24 Therapeutic Interventions Therapeutic Interventions Balance Training,Gait Training ,Home Exercise Program,Joint Mobilizations,Manual Therapy, Neuromuscular Re-education, Patient/Caregiver Education, Self-Care/Home Management,Soft Tissue Mobilization, Therapeutic Activities, Therapeutic Exercises Modalities Cold Pack/Ice Massage,Electric Stimulation,Hot Packs, Ultrasound Next Visit Focus/Plan Next Note Type Treatment Note Next Visit Plan Next: assess R hip flexor tightness, Possible R hip extension mobs. POC: ROM, STM, joint mobs, strengthening, gait training
--- NOTE | 2024-02-27 14:32 | PT.OTN ---
Current Diagnoses Unilateral primary osteoarthritis, right knee (02/27/24) Unilateral primary osteoarthritis, left knee (02/27/24) Pain in right knee (02/27/24) Pain in left knee (02/27/24) Other abnormalities of gait and mobility (02/27/24) Physical Therapy Treatment Note PT-OP-A Visit Information Start: 01/30/24 15:58 Freq: Status: Active Protocol: Document 02/27/24 13:51 SP (Rec: 02/27/24 14:34 SP [id number]) Out-Patient Physical Therapy Visit Information Visit Information Visit Type Treatment Note Visit Start Time 13:51 Visit Stop Time 14:32 Visit Number 8 Number of BUSINESS BANKING SALES ASSISTANT Visits 1 Evaluation Information Evaluation Date 01/30/24 PT-OP-B Current Condition Start: 01/30/24 15:58 Freq: Status: Active Protocol: Document 01/30/24 11:15 DCW (Rec: 01/30/24 16:27 DCW [id number]) Current Condition History of Current Condition Onset Date 01/23/24 Current Complaints R TKA History of Current Condition Pt is a 68 year old female presenting one week s/p R TKA. Pt overall feeling good following surgery, but admits sleeping has been brutal. Notes the knee itself is not too bad, but her inner thigh is very sore. Feels better when moving around throughout the day. Had been using FWW, but recently has been using axillary crutches, and over the last day or two, has been going without an AD when in her home. Notes she does not need to do any stairs, but does have stairs to her basement, which she has done a few times, and it went well. Notes her left knee is up next when she recovers from her right. PT-OP-C Subjective Start: 01/30/24 15:58 Freq: Status: Active Protocol: Document 02/27/24 13:51 SP (Rec: 02/27/24 14:34 SP [id number]) OP-PT Subjective Patient Comments Patient Comments Pt reports frustrated still clicking in R knee all the time and pain sleeping, wakes her up 1.5 hrs. Has to take muscle relaxers to help less pain. Doesn't want to take Valium has on hand. She stated feeling really good with exercises pike without foam belt support and swimming PT-OP-G Mobility & Gait Start: 01/30/24 16:27 Freq: Status: Active Protocol: Document 01/30/24 11:15 DCW (Rec: 01/30/24 16:28 DCW [id number]) OP Gait Assessment Gait Gait Assistance Required: Independent Assistive Devices Assistive Device Axillary Crutches Gait Deviations General Gait Pattern Antalgic Comments Gait Comments Mild antalgia /c axillary crutches, two-point gait pattern. good clearance and stride length. Trial of SPC, minimal antalgia, increased path deviation, mild LOB self- corrected. PT-OP-K Range of Motion Start: 01/30/24 15:58 Freq: Status: Active Protocol: Document 02/18/24 13:46 SP (Rec: 02/18/24 14:37 SP [id number]) Knee Goniometric Range of Motion Knee Left Patient Position Supine Flexion Active (degrees) 125 Extension Active (degrees) 0 PT-OP-M Strength Start: 01/30/24 15:58 Freq: Status: Active Protocol: Document 01/30/24 11:15 DCW (Rec: 01/30/24 16:27 DCW [id number]) Knee Strength Knee Manual Muscle Testing Right Flexion (S2) 3+ Fair+ Extension (L3) 3+ Fair+ Left Flexion (S2) 4+ Good+ Extension (L3) 4+ Good+ PT-OP-Q Treatments Start: 01/30/24 15:58 Freq: Status: Active Protocol: Document 02/27/24 13:51 SP (Rec: 02/27/24 14:34 SP [id number]) Cardio Equipment Bicycle (Upright) Duration (Minutes) 8 Resistance 5>6>5 Gym Equipment Cable Column (Body Solid) LE extension Details pain initial lift- DC Resistance 1 HS curls Details x10 Resistance 3 plates Reps/Time good response, pnfree Shuttle Recovery unilateral squat Details cued knee alignment Resistance 25#>37# (1 navy) Reps/Time 2x8 reps Bilateral Squats Details cued knee alignment more later Resistance 50#>62# Shuttle Recovery Platform Stable Reps/Time 118? flexion Therapeutic Exercises Standing Exercises hip ext & abd Standing Exercise Name trialed- caused pain posterolateral R knee-DC Resistance Tb #3 at thighs Reps/Minutes 2 Other Exercises Resisted Ambulation Other Exercise Name Resisted side-stepping Side bilateral Resistance Green loop at ankles Reps/Minutes 10 ft x2 Comments good form, pnfree PT-OP-T Assessment and Plan Start: 01/30/24 15:58 Freq: Status: Active Protocol: Document 02/27/24 13:51 SP (Rec: 02/27/24 14:34 SP [id number]) Physical Therapy Assessment Goals Two Impairment Pt presents with limited right knee ROM, 4?-95? Esl Tutor Goal (LTG) Pt to improve right knee AROM to 0?-120? in order to return functional mobility to prior level of function LTG Duration 03/31/24 One Impairment Pt does not have an appropriate home exercise program Short Term Goal (STG) Pt to be independent and compliant with an appropriate HEP STG Duration 03/01/24 Assessment Summary Assessment Pt tolerated session well. Was able to tolerated increased resistance on shuttle recovery for BLE strengthening, limited L knee range due to severe bone on bone. Very slow progression in ROM. Trialed stationary resisted hip abd and ext and caused pain posterior R knee so DC, no pain resisted side stepping. Physical Therapy Plan Frequency and Duration Frequency of Treatment 2x/Week Plan of Care Start Date 01/30/24 Plan of Care End Date 03/31/24 Therapeutic Interventions Therapeutic Interventions Balance Training,Gait Training ,Home Exercise Program,Joint Mobilizations,Manual Therapy, Neuromuscular Re-education, Patient/Caregiver Education, Self-Care/Home Management,Soft Tissue Mobilization, Therapeutic Activities, Therapeutic Exercises Modalities Cold Pack/Ice Massage,Electric Stimulation,Hot Packs, Ultrasound Next Visit Focus/Plan Next Note Type Treatment Note Next Visit Plan Next: assess R hip flexor tightness, Possible R hip extension mobs. POC: ROM, STM, joint mobs, strengthening, gait training
--- NOTE | 2024-03-10 16:42 | PT.OTN ---
Current Diagnoses Unilateral primary osteoarthritis, right knee (03/10/24) Unilateral primary osteoarthritis, left knee (03/10/24) Pain in right knee (03/10/24) Pain in left knee (03/10/24) Other abnormalities of gait and mobility (03/10/24) Physical Therapy Treatment Note PT-OP-A Visit Information Start: 01/30/24 15:58 Freq: Status: Active Protocol: Document 03/10/24 16:00 DCW (Rec: 03/10/24 16:41 DCW [id number]) Out-Patient Physical Therapy Visit Information Visit Information Visit Type Discharge Summary Visit Start Time 16:00 Visit Stop Time 16:30 Visit Number 9 Number of SHUTTLE CAR OPERATOR Visits 0 Evaluation Information Evaluation Date 01/30/24 PT-OP-B Current Condition Start: 01/30/24 15:58 Freq: Status: Active Protocol: Document 01/30/24 11:15 DCW (Rec: 01/30/24 16:27 DCW [id number]) Current Condition History of Current Condition Onset Date 01/23/24 Current Complaints R TKA History of Current Condition Pt is a 68 year old female presenting one week s/p R TKA. Pt overall feeling good following surgery, but admits sleeping has been brutal. Notes the knee itself is not too bad, but her inner thigh is very sore. Feels better when moving around throughout the day. Had been using FWW, but recently has been using axillary crutches, and over the last day or two, has been going without an AD when in her home. Notes she does not need to do any stairs, but does have stairs to her basement, which she has done a few times, and it went well. Notes her left knee is up next when she recovers from her right. PT-OP-C Subjective Start: 01/30/24 15:58 Freq: Status: Active Protocol: Document 03/10/24 16:00 DCW (Rec: 03/10/24 16:41 DCW [id number]) OP-PT Subjective Patient Comments Patient Comments SO much better! Pt pain levels much more controlled, feels she has really turned a corner. Leaving for 7-week vacation later this week. PT-OP-G Mobility & Gait Start: 01/30/24 16:27 Freq: Status: Active Protocol: Document 01/30/24 11:15 DCW (Rec: 01/30/24 16:28 DCW [id number]) OP Gait Assessment Gait Gait Assistance Required: Independent Assistive Devices Assistive Device Axillary Crutches Gait Deviations General Gait Pattern Antalgic Comments Gait Comments Mild antalgia /c axillary crutches, two-point gait pattern. good clearance and stride length. Trial of SPC, minimal antalgia, increased path deviation, mild LOB self- corrected. PT-OP-K Range of Motion Start: 01/30/24 15:58 Freq: Status: Active Protocol: Document 03/10/24 16:00 DCW (Rec: 03/10/24 16:42 DCW [id number]) Knee Goniometric Range of Motion Knee Left Patient Position Supine Flexion Active (degrees) 123 Flexion Passive (degrees) 129 PT-OP-M Strength Start: 01/30/24 15:58 Freq: Status: Active Protocol: Document 01/30/24 11:15 DCW (Rec: 01/30/24 16:27 DCW [id number]) Knee Strength Knee Manual Muscle Testing Right Flexion (S2) 3+ Fair+ Extension (L3) 3+ Fair+ Left Flexion (S2) 4+ Good+ Extension (L3) 4+ Good+ PT-OP-Q Treatments Start: 01/30/24 15:58 Freq: Status: Active Protocol: Document 03/10/24 16:00 DCW (Rec: 03/10/24 16:41 DCW [id number]) Cardio Equipment Recumbent Bicycle Duration (Minutes) 8 Resistance 6 Seat Position 4 Self-Care/Home Management Treatment Education Other Education Review HEP, discussion regarding knee holding up on upcoming trip to [place]. PT-OP-T Assessment and Plan Start: 01/30/24 15:58 Freq: Status: Active Protocol: Document 03/10/24 16:00 DCW (Rec: 03/10/24 16:41 DC [id number]) Physical Therapy Assessment Impairments Impairments Activity Tolerance,Functional Activities,Functional Mobility ,Gait,Pain,ROM,Strength Goals Two Impairment Pt presents with limited right knee ROM, 4?-95? Supervisor [employer] Goal (LTG) Pt to improve right knee AROM to 0?-120? in order to return functional mobility to prior level of function LTG Duration Met One Impairment Pt does not have an appropriate home exercise program Short Term Goal (STG) Pt to be independent and compliant with an appropriate HEP STG Duration Met Progress Towards Goals Progress Towards Goals Goals Met Assessment Summary Assessment Met all goals. Leaving for [place] for seven weeks. Feels comfortable with ongoing HEP. Agreeable to discharge at this time. Physical Therapy Plan Frequency and Duration Frequency of Treatment 2x/Week Plan of Care Start Date 01/30/24 Plan of Care End Date 03/31/24 Therapeutic Interventions Therapeutic Interventions Balance Training,Gait Training ,Home Exercise Program,Joint Mobilizations,Manual Therapy, Neuromuscular Re-education, Patient/Caregiver Education, Self-Care/Home Management,Soft Tissue Mobilization, Therapeutic Activities, Therapeutic Exercises Modalities Cold Pack/Ice Massage,Electric Stimulation,Hot Packs, Ultrasound Discharge Physical Therapy Discharge Reasons Goals Met Next Visit Focus/Plan Next Note Type Discharge Summary
== END 2024-08-27 09:30 | disposition home or self-care (01) ==
LOC: PHYS 16:00
PROVIDERS: Family Provider Physician Assistant; PCP Family Medicine; Referring Provider Orthopaedic Surgery; Visit Provider Orthopaedic Surgery
DX: M17.0 Bilateral primary osteoarthritis of knee (principal); M25.561 Pain in right knee; M25.562 Pain in left knee; R26.89 Other abnormalities of gait and mobility
CPT/HCPCS: 97110; 97112; 97140; 97161; 97535

== ENCOUNTER → 2024-07-24 13:32 | Outpatient (CLI) | payer MEDICARE, SELFPAY ==
[2024-07-24 13:47] LABS: Appearance Urine UA CLEAR; Bilirubin Urine UA NEGATIVE (NEGATIVE); Color Urine UA YELLOW; Glucose Urine UA NEGATIVE (Negative); Ketones Urine UA NEGATIVE (NEGATIVE); Leukocyte Esterase Urine UA NEGATIVE (NEGATIVE); Nitrite Urine UA NEGATIVE (Negative); Occult Blood Urine UA NEGATIVE (Negative); Protein Urine UA NEGATIVE (Negative); Urobilinogen Urine UA 0.2 E.U./dL (0.2); pH Urine UA 6.5 (4.5-8.0)
[2024-07-24 13:52] LABS: Bacteria Urine None Seen; Culture Indicated Urine Cult Not Indicated; RBC Urine None Seen (0-5/HPF); Squamous Epithelial Cell Urine None Seen (0-5/HPF); Urine Volume 10mL (spun); WBC Urine None Seen (0-5/HPF)
== END ==
PROVIDERS: Family Provider Physician Assistant; PCP Family Medicine; Referring Provider Family Medicine; Visit Provider Family Medicine
DX: R35.0 Frequency of micturition (principal)
CPT/HCPCS: 81001

== ENCOUNTER 2025-01-08 13:00 | Outpatient (RCR) | payer MEDICARE, SELFPAY ==
--- NOTE | 2024-12-17 13:00 | OT.OPPOC ---
Physical, Occupational & Speech Therapy At [facility] CadenKomal Elaina [id number] 1955 Visit Care Team Role Provider Type Jes Hardin DO Primary Care Provider Physician Address: [address] [place] [address], [address], [place], [address] Lenora Martin PA-C Family Provider Advanced Farmer General Address: [address] [place] [address], [address] Santy Tamayo DO Attending Provider Non-Staff Referring Provider Address: [address] [place] [address], [address] Occupational Therapy Plan of Care OT Outpatient Adult Evaluation Start: 12/17/24 11:38 Freq: Status: Active Protocol: Document 12/17/24 09:45 (Rec: 12/17/24 12:59 [id number]) General Information - Adult Visit Information Visit Number 1 of 16 Plan of Care Dates 12/17/2024-02/11/25 Insurance no pre-auth;$45 copay per visit;no deductible;no visit Information limit Session Time Visit Start Date 12/16/24 Visit Start Time 09:45 Visit Stop Time 10:30 Setting Treatment Setting Outpatient Care Visit Type Note Type Initial Evaluation Referral Referring Physician Dr. Santy Tamayo Reason for Referral s/p ORIF of R displaced olecranon fracture 11/30/24 following GLF Precautions NWB on RUE Identification Identification Yes Confirmed Identification EMR Confirmed By Medical Information Medical History remote fracture of R pinky with baseline deficit of AROM, arthritis of bilateral thumb CMC joints Social Information Social History I was able to touch my hair today which was an improvement! Patient Questionnaires Quick Dash- Upper Extremity Quick Dash UE Score 84.1 Quick Dash UE 80 to 99% Impaired (Score 80-99) Impairment Functional Wrist/Hand Scan Hand Side Wrist Flex Yes/No Yes: L 89*; R 75* Wrist Extension Yes/No Yes: L 70*; R 55* Wrist Radial Deviation Yes/No Yes: L 20*; R 16* Wrist Ulnar Deviation Yes/No Yes: L 55*; R 30* Standard Fist Yes/No Yes: WNL Goals Objective Measurements Objective MMT deferred until clarification of orders, Shoulder Measurements AROM: [Extension/ABD/ADD/IR of BUE WNL] Flexion BUE-155 *, Ext Rot LUE- 90* RUE- 85*; Elbow AROM: [Supination/ Pronation of forearm WNL] Flexion LUE 160* RUE 110*; Extension LUE 10* RUE 30*; Cutting And Creasing Press Operator: [L- // - Avg 19. 7#][R- /16 - Avg 15#]; Lateral Pinch: L 10, R 9; Tripod Pinch: L 4, R 10 Treatment Treatment Reviewed splint wear/skin integrity education, weight bearing precautions, HEP introduced with good return demo, pt educated on WB/ROM precautions, verbalized good understanding Short Term Goals Short Term Goals 1. Patient will improve R elbow flexion AROM from 110? to at least 125? and extension from 30? to 20?, within physician-prescribed limits and without pain >3/10, in order to support basic grooming and tabletop tasks, within 4 weeks. 2. Patient will maintain shoulder and forearm AROM on the RUE (e.g., shoulder flexion = 150?, ER = 85?, supination/pronation WNL) to support compensatory strategies and prevent secondary joint stiffness, in 100% of observed sessions. 3.Patient will demonstrate independent return demo of HEP within 2 weeks Dice Spotter Goals Jail Goals 1. Patient will demonstrate R elbow AROM of at least 0? ?135? flexion and full functional supination/pronation, with pain =2/10, to support tasks such as washing face , hair care, or managing clothing during dressing within 8 weeks. 2. Patient will achieve functional RUE cementer strength of >25lb to tolerate light household tasks (e.g., opening jars, wiping surfaces, or light carrying =5 lbs) without pain or compensation within 8 weeks. 3. Patient will achieve RUE strength of elbow flexors and extensors to tolerate participation in functional ADL/IADL tasks without pain or compensation within 8 weeks. Assessment/Plan Assessment Patient Response Good Rehabilitation Good Potential Impairments ADLs,Flexibility,Functional Activities,Motor Function, Identified Pain,Weakness,Range of Motion,Recreational Activities, Meaningful Activities,Stiffness,Soft Tissue Mobility Treatment Assessment 69 year old RHD female referred by Dr. Santy Tamayo for post operative care following ORIF 11/30/24 of R displaced olecranon fracture in setting of ground level fall. Pt was placed in sling for 2 weeks and to remain NWB on RUE. Pt fitted for posterior elbow splint 12/16 and demonstrated indep donning/doffing of both splint and sling. Order for gentle ROM though clarification will be needed to determine AROM/PROM and resistance protocols. Pt currently demonstrates limitations in AROM of elbow/wrist and cementer/pinch strength limiting independence in participation of ADL/ IADL as well as 6-7 out of 10 pain with pronation of forearm. Pt will benefit from skilled occupational therapy to progress ROM, strength, and education on post operative care to achieve maximum pain free ROM/ strength for increased independence completing ADL and IADL. Continue OT POC Home Exercise Introduced HEP [Prayer/Reverse Prayer stretch, Overhead Program Arm Stretch with Hands Clasped, Table Slides, Thumb opposition/fingertip taps, Wrist ext/flex, Wrist Ulnar/ Radial deviation ROM] Reviewed with Goals,Progress Being Made,Home Exercise Program Patient Patient Excellent Understanding Plan Length of treatment 8 (weeks) Plan of Care Start 12/17/24 Date Plan of Care End 02/11/25 Date Treatment Frequency Twice a Week Treatment Duration 45 Minutes Therapeutic Contents Active Range of Motion,Adaptive Equipment Education, Client Education,Functional Activities,Home Exercise Program,Manual Therapy,Education,Orthotic Fitting & Training,Self-Care,Stretching/Flexibility Activities, Therapeutic Activities,Therapeutic Exercises,Modalities Modalities As Needed Types of Modalities Ice Massage,Other Additional Types of MHP, paraffin Modalities Patient Instruction Home Exercise Program,Plan of Care,Questions/Concerns Patient Continue with Current Program Recommendations Electronically Signed by: Reta Contreras OT 12/17/24 1300 If you are in agreement with this Plan of Care, please return a signed and dated copy. I have reviewed this Plan of Care and certify that the skilled therapy services above are required to meet the patient?s needs. Physician Signature Date Printed Name and Credentials Clinical Instructor Signature Printed Name and Credentials
--- NOTE | 2024-12-22 16:40 | OT.OP.TRT ---
Visit Care Team Role Provider Type Jes Hardin DO Primary Care Provider Physician Specialty: Family Practice Address: [address] [place] [address], [address], [place], [address] Email: [email or web address] Lenora Martin PA-C Family Provider Advanced Plug Stitcher Specialty: Medical Wound Care Address: [address] [place] [address], [address] Email: [email or web address] Santy Tamayo DO Attending Provider Non-Staff Referring Provider Specialty: Orthopedics Address: [address] [facility], [place], [address] Email: Occupational Therapy Treatment Note OT Outpatient Treatment Note - Adult Start: 12/17/24 11:38 Freq: Status: Active Protocol: Document 12/22/24 13:45 (Rec: 12/22/24 14:33 [id number]) OT Outpatient Adult Treatment Note Session Time Visit Start Date 12/22/24 Visit Start Time 13:45 Visit Stop Time 14:30 Visit Information Visit Number 2 of 16 Plan of Care Dates 12/17/2024-02/11/25 Insurance no pre-auth;$45 copay per visit;no deductible;no visit Information limit Setting Treatment Setting Outpatient Care Visit Type Note Type Treatment Note - Subjective Observations I can eat with my right hand now! - - Treatment 1 Descriptor Pt educated at length on gentle AROM, activities to avoid, reasoning/purpose of immobilization while maintaining AROM of joints prior to introducing resistance/strengthening. Pt has been active and is eager to return to regular routines but verbalized understanding of still being within the acute phase of healing and precautions are in place to allow proper healing and avoid complications while minimizing potential concerns from immobility once restrictions are lifted. Pt verbalized good understanding and reports good compliance with restrictions and use of orthosis. Exercises 1 Descriptor completed gentle AROM of: Shoulder, elbow, wrist, hand/ fingers, pt demonstrated good return demo of HEP with minimal verbal cues including- 1. Prayer Stretch 2. Arm stretch with hands clasped 3. table slides for shoulder scaption 4. Finger/thumb opposition 5. Wrist flex/ext Verbal Cues Min Cues - Assessment Patient Response to Good Treatment Rehabilitation Good Potential Progress Towards Good Progress Goals Assessment of Improving Overall Progress Assessment of Pt reports good compliance with brace wear and HEP, per Improvement update from MD, pt to remain NWB through the week of January 11 and to continue with only gentle AROM. Restrictions and reasoning reviewed with patient as well as purpose of HEP and modification recommendations for functional tasks to maintain WB and ROM recommendations. Pt verbalized good understanding and is eager to return to her regular activities. Pt is making good progress and demonstrates good carry over of previous education. Pt will continue to benefit from skilled OT to monitor and progress HEP as appropriate and continue ROM and strengthening as well as education on accommodations and adaptations until activity restrictions lifted. Continue OT POC Reviewed with Goals,Progress Being Made,Home Exercise Program Patient/Caregiver Patient/Caregiver Excellent Understanding - Plan Therapy Continue with Current Program Recommendations Amount of Therapy 2 Months Recommended Frequency of Twice a Week Treatment Length of Session 45 Minutes Therapeutic Contents Active Range of Motion,Adaptive Equipment Education, Client Education,Functional Activities,Home Exercise Program,Manual Therapy,Education,Orthotic Fitting & Training,Self-Care,Stretching/Flexibility Activities, Therapeutic Activities,Therapeutic Exercises,Modalities Modalities As Needed Types of Modalities Ice Massage,Other Additional Types of MHP, paraffin Modalities
--- NOTE | 2024-12-24 10:47 | OT.OP.TRT ---
Visit Care Team Role Provider Type Jes Hardin DO Primary Care Provider Physician Specialty: Family Practice Address: [address] [place] [address], [address], [place], [address] Email: [email or web address] Lenora Martin PA-C Family Provider Advanced Inventory Control Analyst Specialty: Medical Wound Care Address: [address] [place] [address], [place], [address] Email: [email or web address] Santy Tamayo DO Attending Provider Non-Staff Referring Provider Specialty: Orthopedics Address: [address] [facility], [place], [address] Email: Occupational Therapy Treatment Note OT Outpatient Treatment Note - Adult Start: 12/17/24 11:38 Freq: Status: Active Protocol: Document 12/24/24 10:45 (Rec: 12/24/24 10:39 [id number]) OT Outpatient Adult Treatment Note Session Time Visit Start Date 12/24/24 Visit Start Time 09:45 Visit Stop Time 10:30 Visit Information Visit Number 3 of 16 Plan of Care Dates 12/17/2024-02/11/25 Insurance no pre-auth;$45 copay per visit;no deductible-no visit Information limit Setting Treatment Setting Outpatient Care Visit Type Note Type Treatment Note - Subjective Identification Type Name Identification Medical Record Reconciled With Observations I can get my bra on now! - Objective Short Term Goals 1. Patient will improve R elbow flexion AROM from 110? to at least 125? and extension from 30? to 20?, within physician-prescribed limits and without pain >3/10, in order to support basic grooming and tabletop tasks, within 4 weeks. 2. Patient will maintain shoulder and forearm AROM on the RUE (e.g., shoulder flexion = 150?, ER = 85?, supination/pronation WNL) to support compensatory strategies and prevent secondary joint stiffness, in 100% of observed sessions. 3.Patient will demonstrate independent return demo of HEP within 2 weeks [MET 12/24/24] Skilled Nursing Goals 1. Patient will demonstrate R elbow AROM of at least 0? ?135? flexion and full functional supination/pronation, with pain =2/10, to support tasks such as washing face , hair care, or managing clothing during dressing within 8 weeks. 2. 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 3. Patient will achieve RUE strength of elbow flexors and extensors to tolerate participation in functional ADL/IADL tasks without pain or compensation within 8 weeks. - Treatment 1 Descriptor Pt completed gentle AROM HEP independently with good return demo and without prompts. Pt stated pain at forearm had dissipated but she was getting a blister on her olecranon process from the brace, educated patients on options for brace modification and supplies to decrease friction and contact with the skin, educated on hydrating and protecting skin barrier while braced. Pt verbalized good understanding and reports good compliance with restrictions and use of orthosis. Pt's HEP progressed to include standing alternating wall ER/IR (robot arms) as pt reporting some noted tension/discomfort at her deltoid, pt also educated on the modified body mechanics of gait and arm swing while wearing brace/sling and need to range shoulder more as while in a brace/sling the immobilization during functional activities and mobility do not allow for normal functional ranging of joints during regular activity performance and can cause tension and stiffness of other joints such as shoulder/wrist/hand. Pt verbalized good understanding and advised she would be out of town visiting her brother with terminal end- stage disease and due to travel she will not be able to be seen for OT next week. Exercises 1 Descriptor completed gentle AROM of: Shoulder, elbow, wrist, hand/ fingers, pt demonstrated good return demo of HEP with minimal verbal cues including- 1. Prayer Stretch 2. Arm stretch with hands clasped 3. table slides for shoulder scaption 4. Finger/thumb opposition 5. Wrist flex/ext Verbal Cues None - Assessment Patient Response to Good Treatment Rehabilitation Good Potential Progress Towards Good Progress Goals Assessment of Improving Overall Progress Assessment of Patient is progressing appropriately in recovery Improvement following recent ORIF of the right olecranon. At approximately 2?3 weeks post-op, she remains under strict precautions limiting her to gentle AROM only, with no resistance, pushing, pulling, lifting, or weight-bearing until at least mid-December. Patient completed her prescribed HEP independently with good quality of movement and without need for verbal cueing, indicating strong compliance and integration of prior education. She met her initial HEP goal and continues to demonstrate functional AROM of involved joints without regression or compensatory movement patterns. Patient reports resolution of forearm pain but noted skin irritation at the olecranon process due to brace friction, currently causing a superficial blister. Patient was educated on skin protection strategies, brace padding options, and the importance of maintaining skin hydration and integrity while braced. HEP was progressed to include standing wall-based alternating ER/IR (?robot arms?) to address emerging deltoid tension, with instruction on gentle shoulder ranging to mitigate secondary stiffness due to altered arm swing and decreased upper limb mobility while braced. Education was also provided regarding the impact of restricted gait mechanics on joint use and the need to actively range shoulder, wrist, and hand throughout daily routines. Patient demonstrated good insight and verbal understanding of all education and precautions, and reports consistent compliance with orthosis use and activity restrictions. She notified therapist of upcoming travel to visit a terminally ill family member and will be unavailable for treatment next week. Reviewed with Goals,Progress Being Made,Home Exercise Program Patient/Caregiver Patient/Caregiver Excellent Understanding - Plan Therapy Continue with Current Program Recommendations Amount of Therapy 2 Months Recommended Frequency of Twice a Week Treatment Length of Session 45 Minutes Therapeutic Contents Active Range of Motion,Adaptive Equipment Education, Client Education,Functional Activities,Home Exercise Program,Manual Therapy,Education,Orthotic Fitting & Training,Self-Care,Stretching/Flexibility Activities, Therapeutic Activities,Therapeutic Exercises,Modalities Modalities As Needed Types of Modalities Ice Massage,Other Additional Types of MHP, paraffin Modalities
--- NOTE | 2025-01-06 12:33 | OT.OP.TRT ---
Visit Care Team Role Provider Type Jes Hardin DO Primary Care Provider Physician Specialty: Family Practice Address: [address] [place] [address], [address], [place], [address] Email: [email or web address] Lenora Martin PA-C Family Provider Advanced Surgery Tech Specialty: Medical Wound Care Address: [address] [place] [address], [place], [address] Email: [email or web address] Santy Tamayo DO Attending Provider Non-Staff Referring Provider Specialty: Orthopedics Address: [facility], [place], [address] Email: Occupational Therapy Treatment Note OT Outpatient Treatment Note - Adult Start: 12/17/24 11:38 Freq: Status: Active Protocol: Document 01/06/25 10:44 (Rec: 01/06/25 10:45 [id number]) OT Outpatient Adult Treatment Note Session Time Visit Start Date 01/06/25 Visit Start Time 09:45 Visit Stop Time 10:30 Visit Information Visit Number 4 of 16 Plan of Care Dates 12/17/2024-02/11/25 Insurance no pre-auth;$45 copay per visit;no deductible-no visit Information limit Setting Treatment Setting Outpatient Care Visit Type Note Type Treatment Note - Subjective Observations I got an infection from that spot that rubbed raw from the brace but its cleared up now - Objective Short Term Goals 1. Patient will improve R elbow flexion AROM from 110? to at least 125? and extension from 30? to 20?, within physician-prescribed limits and without pain >3/10, in order to support basic grooming and tabletop tasks, within 4 weeks. 2. Patient will maintain shoulder and forearm AROM on the RUE (e.g., shoulder flexion = 150?, ER = 85?, supination/pronation WNL) to support compensatory strategies and prevent secondary joint stiffness, in 100% of observed sessions. 3.Patient will demonstrate independent return demo of HEP within 2 weeks [MET 12/24/24] [facility] Goals 1. Patient will demonstrate R elbow AROM of at least 0? ?135? flexion and full functional supination/pronation, with pain =2/10, to support tasks such as washing face , hair care, or managing clothing during dressing within 8 weeks. 2. Patient will achieve functional RUE machine preservative filler strength of >25lb to tolerate light household tasks (e.g., opening jars, wiping surfaces, or light carrying =5 lbs) without pain or compensation within 8 weeks. 3. Patient will achieve RUE strength of elbow flexors and extensors to tolerate participation in functional ADL/IADL tasks without pain or compensation within 8 weeks. - Treatment 1 Descriptor Patient returned to treatment following missed visits due to [id number] travel and reports an infection at the left olecranon secondary to brace-related pressure, now resolved with antibiotics. Per surgical team's updated guidance, brace use was discontinued and patient was cleared to initiate ROM, though specific end-range resistance parameters remain unspecified. Patient remains highly compliant with HEP and independently demonstrated 1 set of each prescribed exercise with noted improvements in LUE wrist and elbow extension. Patient presents with moderate localized swelling at surgical site and reports increased discomfort and referred tension from elbow to ipsilateral shoulder. During this session, patient was positioned supine with MHP applied to shoulder for pain modulation and soft tissue extensibility. Gentle PROM for elbow extension was performed in gravity-assisted position with joint supported on pillow, concurrent with therapist- administered soft tissue mobilization to the deltoid, biceps, triceps, and forearm musculature. Palpable myofascial tension was noted throughout LUE, particularly in the deltoid and forearm flexor mass, with positive response to manual intervention and subjective pain reduction reported post-treatment. Patient was educated in self-mobilization and soft tissue release strategies for home carryover with appropriate return demonstration and verbal comprehension. - Assessment Patient Response to Good Treatment Rehabilitation Good Potential Progress Towards Good Progress Goals Assessment of Improving Overall Progress Assessment of Patient progressing well overall with excellent Improvement compliance and carryover of all education and home program recommendations. She returned to therapy following travel and a resolved infection at the left olecranon due to brace-related pressure; brace use has been discontinued per surgeon's instructions, and ROM initiation was approved, though specific resistance precautions remain pending. Patient is scheduled for follow-up with her surgeon on Saturday, at which time further clarification on ROM progression and precautions is anticipated. During this session, patient demonstrated independent performance of HEP with noted improvements in LUE wrist and elbow extension. Reports increased discomfort in upper arm and shoulder with occasional radiating pain; soft tissue mobilization to the deltoid, biceps, triceps, and forearm revealed significant myofascial tension, which responded well to intervention. PROM for elbow extension was performed in a gravity-assisted supine position with concurrent soft tissue work. Patient tolerated treatment well and reported significant subjective improvement in pain and mobility . Patient verbalized she feels she is making good progress in functional movement but is eager to resume normal activities and return to exercise. Skilled OT remains appropriate to support ongoing pain management, progressive AROM, edema reduction, soft tissue mobility, and safe reintegration into higher-level functional tasks and ADLs/IADLs as medically appropriate. Reviewed with Goals,Progress Being Made,Home Exercise Program Patient/Caregiver Patient/Caregiver Excellent Understanding - Plan Therapy Continue with Current Program Recommendations Amount of Therapy 2 Months Recommended Frequency of Twice a Week Treatment Length of Session 45 Minutes Therapeutic Contents Active Range of Motion,Adaptive Equipment Education, Client Education,Functional Activities,Home Exercise Program,Manual Therapy,Education,Orthotic Fitting & Training,Self-Care,Stretching/Flexibility Activities, Therapeutic Activities,Therapeutic Exercises,Modalities Modalities As Needed Types of Modalities Ice Massage,Other Additional Types of MHP, paraffin Modalities
--- NOTE | 2025-01-08 17:16 | OT.OP.TRT ---
Visit Care Team Role Provider Type Jes Hardin DO Primary Care Provider Physician Specialty: Family Practice Address: [address] [place] [address], [address], [place], [address] Email: [email or web address] Lenora Martin PA-C Family Provider Advanced Employee Relation Manager Specialty: Medical Wound Care Address: [address] [place] [address], [place], [address] Email: [email or web address] Santy Tamayo DO Attending Provider Non-Staff Referring Provider Specialty: Orthopedics Address: [facility], [place], [address] Email: Occupational Therapy Treatment Note OT Outpatient Treatment Note - Adult Start: 12/17/24 11:38 Freq: Status: Active Protocol: Document 01/08/25 13:00 (Rec: 01/08/25 08:40 [id number]) OT Outpatient Adult Treatment Note Session Time Visit Start Date 01/08/25 Visit Start Time 13:00 Visit Stop Time 13:45 Visit Information Visit Number 5 of 16 Plan of Care Dates 12/17/2024-02/11/25 Insurance no pre-auth;$45 copay per visit;no deductible-no visit Information limit Setting Treatment Setting Outpatient Care Visit Type Note Type Treatment Note - Subjective Identification Type Name Identification Medical Record Reconciled With Observations My upper arm and forearm are hurting but they felt a lot better after last session - Objective Objective R elbow flex: 145* (gain of 35* since eval) Measurements R elbow ext: -20 (gain of 10 * since eval) Short Term Goals 1. Patient will improve R elbow flexion AROM from 110? to at least 125? and extension from 30? to 20?, within physician-prescribed limits and without pain >3/10, in order to support basic grooming and tabletop tasks, within 4 weeks. 2. Patient will maintain shoulder and forearm AROM on the RUE (e.g., shoulder flexion = 150?, ER = 85?, supination/pronation WNL) to support compensatory strategies and prevent secondary joint stiffness, in 100% of observed sessions. 3.Patient will demonstrate independent return demo of HEP within 2 weeks [MET 12/24/24] Custodial Goals 1. Patient will demonstrate R elbow AROM of at least 0? ?135? flexion and full functional supination/pronation, with pain =2/10, to support tasks such as washing face , hair care, or managing clothing during dressing within 8 weeks. 2. Patient will achieve functional RUE rail car painter/sandblaster strength of >25lb to tolerate light household tasks (e.g., opening jars, wiping surfaces, or light carrying =5 lbs) without pain or compensation within 8 weeks. 3. Patient will achieve RUE strength of elbow flexors and extensors to tolerate participation in functional ADL/IADL tasks without pain or compensation within 8 weeks. - Treatment 1 Descriptor Patient remains highly compliant with HEP, requesting updated AROM measurements in anticipation of upcoming follow up visit with surgeon. Pt with noted improvements in R elbow flexion and extension. Patient presents with reduced localized swelling at surgical site since last visit though reporting more pain after typing or computer work in her forearm. Pt advised her brother 2 days ago and while expected, they were very close and it has been difficult for her. During this session, patient was positioned supine with MHP applied to shoulder for pain modulation and soft tissue extensibility. Gentle PROM for elbow extension was performed in gravity-assisted position with joint supported on pillow, concurrent with therapist- administered soft tissue mobilization to the deltoid, biceps, triceps, and forearm musculature. Noticeable decrease in myofascial tension was noted throughout RUE , positive response to manual intervention and subjective pain reduction reported post-treatment. Patient was further educated in self-mobilization and soft tissue release strategies for home carryover with appropriate return demonstration and verbal comprehension. - Assessment Patient Response to Good Treatment Rehabilitation Good Potential Progress Towards Good Progress Goals Assessment of Improving Overall Progress Assessment of Patient has demonstrated measurable improvement in Improvement right elbow mobility with a 35-degree gain in flexion and a 10-degree gain in extension since the initial evaluation, indicating positive response to therapeutic intervention. Education was provided regarding the connection between emotional grief and physical tension , with emphasis on the role of self-care, relaxation strategies, and self-massage to support both musculoskeletal and emotional healing as the patient processes the recent loss of her brother. Patient was receptive to this education and demonstrates insight into the somatic relevance of pain and muscle tension as it relates to post-surgical healing. Continued skilled occupational therapy is warranted to further progress elbow range of motion, particularly as clarification and/or progression of activity orders for resistive exercise is anticipated. Therapy will also focus on managing residual stiffness, pain, and functional limitations associated with post-fracture immobilization. Reviewed with Goals,Progress Being Made,Home Exercise Program Patient/Caregiver Patient/Caregiver Excellent Understanding - Plan Therapy Continue with Current Program Recommendations Amount of Therapy 2 Months Recommended Frequency of Twice a Week Treatment Length of Session 45 Minutes Therapeutic Contents Active Range of Motion,Adaptive Equipment Education, Client Education,Functional Activities,Home Exercise Program,Manual Therapy,Education,Orthotic Fitting & Training,Self-Care,Stretching/Flexibility Activities, Therapeutic Activities,Therapeutic Exercises,Modalities Modalities As Needed Types of Modalities Ice Massage,Other Additional Types of MHP, paraffin Modalities
--- NOTE | 2025-01-15 17:22 | OT.OP.DC ---
Visit Care Team Role Provider Type Jes Hardin DO Primary Care Provider Physician Address: [address] [place] [address], [address], [place], [address] Email: [email or web address] Provider Advanced Track Mechanic Address: [address] [place] [address], [address] Email: [email or web address] Santy Tamayo DO Attending Provider Non-Staff Referring Provider Address: [address] [place] [address], [place], [address] Email: OT Outpatient OT Outpatient Adult Evaluation Start: 12/17/24 11:38 Freq: Status: Active Protocol: Document 12/17/24 09:45 (Rec: 12/17/24 12:59 [id number]) General Information - Adult Visit Information Visit Number 1 of 16 Plan of Care Dates 12/17/2024-02/11/25 Insurance no pre-auth;$45 copay per visit;no deductible;no visit Information limit Session Time Visit Start Date 12/16/24 Visit Start Time 09:45 Visit Stop Time 10:30 Setting Treatment Setting Outpatient Care Visit Type Note Type Initial Evaluation Referral Referring Physician Dr. Santy Tamayo Reason for Referral s/p ORIF of R displaced olecranon fracture 11/30/24 following GLF Precautions NWB on RUE Identification Identification Yes Confirmed Identification EMR Confirmed By Medical Information Medical History remote fracture of R pinky with baseline deficit of AROM, arthritis of bilateral thumb CMC joints Social Information Social History I was able to touch my hair today which was an improvement! Patient Questionnaires Quick Dash- Upper Extremity Quick Dash UE Score 84.1 Quick Dash UE 80 to 99% Impaired (Score 80-99) Impairment Functional Wrist/Hand Scan Hand Side Wrist Flex Yes/No Yes: L 89*; R 75* Wrist Extension Yes/No Yes: L 70*; R 55* Wrist Radial Deviation Yes/No Yes: L 20*; R 16* Wrist Ulnar Deviation Yes/No Yes: L 55*; R 30* Standard Fist Yes/No Yes: WNL Goals Objective Measurements Objective MMT deferred until clarification of orders, Shoulder Measurements AROM: [Extension/ABD/ADD/IR of BUE WNL] Flexion BUE-155 *, Ext Rot LUE- 90* RUE- 85*; Elbow AROM: [Supination/ Pronation of forearm WNL] Flexion LUE 160* RUE 110*; Extension LUE 10* RUE 30*; Housing Coordinator: [L- /18 - Avg 19. 7#][R- /16 - Avg 15#]; Lateral Pinch: L 10, R 9; Tripod Pinch: L 4, R 10 Treatment Treatment Reviewed splint wear/skin integrity education, weight bearing precautions, HEP introduced with good return demo, pt educated on WB/ROM precautions, verbalized good understanding Short Term Goals Short Term Goals 1. Patient will improve R elbow flexion AROM from 110? to at least 125? and extension from 30? to 20?, within physician-prescribed limits and without pain >3/10, in order to support basic grooming and tabletop tasks, within 4 weeks. 2. Patient will maintain shoulder and forearm AROM on the RUE (e.g., shoulder flexion = 150?, ER = 85?, supination/pronation WNL) to support compensatory strategies and prevent secondary joint stiffness, in 100% of observed sessions. 3.Patient will demonstrate independent return demo of HEP within 2 weeks Joint Supervisor Goals Fdc Goals 1. Patient will demonstrate R elbow AROM of at least 0? ?135? flexion and full functional supination/pronation, with pain =2/10, to support tasks such as washing face , hair care, or managing clothing during dressing within 8 weeks. 2. Patient will achieve functional RUE monitoring and evaluation advisor strength of >25lb to tolerate light household tasks (e.g., opening jars, wiping surfaces, or light carrying =5 lbs) without pain or compensation within 8 weeks. 3. Patient will achieve RUE strength of elbow flexors and extensors to tolerate participation in functional ADL/IADL tasks without pain or compensation within 8 weeks. Assessment/Plan Assessment Patient Response Good Rehabilitation Good Potential Impairments ADLs,Flexibility,Functional Activities,Motor Function, Identified Pain,Weakness,Range of Motion,Recreational Activities, Meaningful Activities,Stiffness,Soft Tissue Mobility Treatment Assessment 69 year old RHD female referred by Dr. Santy Tamayo for post operative care following ORIF 11/30/24 of R displaced olecranon fracture in setting of ground level fall. Pt was placed in sling for 2 weeks and to remain NWB on RUE. Pt fitted for posterior elbow splint 12/16 and demonstrated indep donning/doffing of both splint and sling. Order for gentle ROM though clarification will be needed to determine AROM/PROM and resistance protocols. Pt currently demonstrates limitations in AROM of elbow/wrist and monitoring and evaluation advisor/pinch strength limiting independence in participation of ADL/ IADL as well as 6-7 out of 10 pain with pronation of forearm. Pt will benefit from skilled occupational therapy to progress ROM, strength, and education on post operative care to achieve maximum pain free ROM/ strength for increased independence completing ADL and IADL. Continue OT POC Home Exercise Introduced HEP [Prayer/Reverse Prayer stretch, Overhead Program Arm Stretch with Hands Clasped, Table Slides, Thumb opposition/fingertip taps, Wrist ext/flex, Wrist Ulnar/ Radial deviation ROM] Reviewed with Goals,Progress Being Made,Home Exercise Program Patient Patient Excellent Understanding Plan Length of treatment 8 (weeks) Plan of Care Start 12/17/24 Date Plan of Care End 02/11/25 Date Treatment Frequency Twice a Week Treatment Duration 45 Minutes Therapeutic Contents Active Range of Motion,Adaptive Equipment Education, Client Education,Functional Activities,Home Exercise Program,Manual Therapy,Education,Orthotic Fitting & Training,Self-Care,Stretching/Flexibility Activities, Therapeutic Activities,Therapeutic Exercises,Modalities Modalities As Needed Types of Modalities Ice Massage,Other Additional Types of MHP, paraffin Modalities Patient Instruction Home Exercise Program,Plan of Care,Questions/Concerns Patient Continue with Current Program Recommendations Sensory Assessment Sensory Profile2 OT Outpatient Treatment Note - Adult Start: 12/17/24 11:38 Freq: Status: Active Protocol: Document 01/15/25 17:16 (Rec: 01/15/25 17:22 [id number]) OT Outpatient Adult Treatment Note Session Time Visit Start Date 01/15/25 Visit Information Plan of Care Dates 12/17/2024-02/11/25 Insurance no pre-auth;$45 copay per visit;no deductible-no visit Information limit Setting Treatment Setting Outpatient Care Visit Type Note Type Discharge Summary General Information General Information Per patient request, discharging without visit prior to goal attainment following recent MD follow up. Pt made good progress within confines of activity restrictions - - Objective Short Term Goals 1. Patient will improve R elbow flexion AROM from 110? to at least 125? and extension from 30? to 20?, within physician-prescribed limits and without pain >3/10, in order to support basic grooming and tabletop tasks, within 4 weeks. 2. Patient will maintain shoulder and forearm AROM on the RUE (e.g., shoulder flexion = 150?, ER = 85?, supination/pronation WNL) to support compensatory strategies and prevent secondary joint stiffness, in 100% of observed sessions. [NOT MET 01/15/25] 3.Patient will demonstrate independent return demo of HEP within 2 weeks [MET 12/24/24] Fdc Goals 1. Patient will demonstrate R elbow AROM of at least 0? ?135? flexion and full functional supination/pronation, with pain =2/10, to support tasks such as washing face , hair care, or managing clothing during dressing within 8 weeks. [MET 01/08/25] 2. Patient will achieve functional RUE monitoring and evaluation advisor strength of >25lb to tolerate light household tasks (e.g., opening jars, wiping surfaces, or light carrying =5 lbs) without pain or compensation within 8 weeks. [UNMET ] 3. Patient will achieve RUE strength of elbow flexors and extensors to tolerate participation in functional ADL/IADL tasks without pain or compensation within 8 weeks. [UNMET 01/15/25] - - Assessment Patient Response to Good Treatment Rehabilitation Good Potential Progress Towards Good Progress,Appropriate for Discharge Goals Assessment of Improving Overall Progress Assessment of Patient has demonstrated measurable improvement in Improvement right elbow mobility with a 35-degree gain in flexion and a 10-degree gain in extension since the initial evaluation, indicating positive response to therapeutic intervention. Education was provided regarding the connection between emotional grief and physical tension , with emphasis on the role of self-care, relaxation strategies, and self-massage to support both musculoskeletal and emotional healing as the patient processes the recent loss of her brother. Patient was receptive to this education and demonstrates insight into the somatic relevance of pain and muscle tension as it relates to post-surgical healing. Per patient request, discharging prior to formal goal assessment/attainment following recent MD follow up. Pt made good progress within confines of activity restrictions and demonstrated functional use of RUE for increased independence with performance of ADL and IADL Reviewed with Goals,Progress Being Made,Home Exercise Program Patient/Caregiver Patient/Caregiver Excellent Understanding - Plan Therapy Discharge from Occupational Therapy Recommendations Frequency of No Further Therapy Treatment
== END 2025-01-21 12:15 | disposition home or self-care (01) ==
LOC: OT 13:00
PROVIDERS: Family Provider Physician Assistant; PCP Family Medicine; Referring Provider Orthopaedic Surgery; Visit Provider Orthopaedic Surgery
DX: S52.021D Displaced fracture of olecranon process without intraarticular extension of right ulna, subsequent encounter for closed fracture with routine healing (principal)
CPT/HCPCS: 97110; 97165; 97530

== ENCOUNTER → 2025-04-29 15:13 | Outpatient (CLI) | payer MEDICARE, SELFPAY ==
--- NOTE | 2025-04-29 15:14 | DI.RAD.S_ITS ---
PROCEDURE: XR DEXA AXIAL SKELETON INDICATIONS: fx of olecran process right ulna on 11/23/2024 COMPARISON: [facility], , XR DEXA AXIAL SKELETON, 02/12/2023, 15:19. FINDINGS: Lumbar Spine: Bone mineral density 0.922 g/cm2, T score -0.9, previously -0.9. Left Femoral Neck: Bone mineral density is 0.689 g/cm2, T score -1.4. Left Hip: Bone mineral density is 0.759 g/cm2, T score -1.5, previously -1.3. Fracture Risk Calculation (when applicable): 10-year fracture risk of a major osteoporotic fracture 9.5 percent and of a hip fracture 1.3 percent. (T score greater or equal to -1.0 to: NORMAL) (T score from -1.1 to -2.4: OSTEOPENIA) (T score less than or equal to -2.5: OSTEOPOROSIS) IMPRESSION: Osteopenia Follow-up guidelines as follows: Osteoporosis: Consider a repeat DEXA and Vertebral Fracture Assessment (VFA) exam in 2 years or sooner if medically necessary, to reassess this patient's status. Osteopenia: Consider a repeat DEXA in 2-3 years to reassess this patient's status, or if there is a new clinical indication. Normal: Consider a repeat DEXA in 5 years or sooner, or if there is a new clinical indication. All treatment decisions require clinical judgment and consideration of individual patient factors, including patient preferences, comorbidities, previous drug use, risk factors not captured in the FRAX model (e.g., frailty, falls, vitamin D deficiency, increased bone turnover, interval significant decline in bone density ) and possible under- or over-estimation of fracture risk by FRAX. In addition, the NOF Guide recommends that FDA-approved medical therapies be considered in postmenopausal women and men age >= 50 years with a: * Hip or vertebral (clinical or morphometric) fracture * T-score of <=-2.5 at the spine or hip * Ten-year fracture probability by FRAX of >= 3% for hip fracture or >=20% for major osteoporotic fracture. Approved by: Andrae Hernandez M.D. on 04/29/2025 at 18:32
== END ==
LOC: MAMMO 15:13
PROVIDERS: PCP Family Medicine; Referring Provider Family Medicine; Visit Provider Family Medicine
DX: M85.89 Other specified disorders of bone density and structure, multiple sites (principal)
CPT/HCPCS: 77080

== ENCOUNTER → 2025-05-03 11:38 | Outpatient (CLI) | payer MEDICARE, SELFPAY ==
[2025-05-03 12:17] LABS: Appearance Urine UA CLEAR; Bilirubin Urine UA NEGATIVE (NEGATIVE); Color Urine UA YELLOW; Glucose Urine UA NEGATIVE (Negative); Ketones Urine UA NEGATIVE (NEGATIVE); Leukocyte Esterase Urine UA NEGATIVE (NEGATIVE); Nitrite Urine UA NEGATIVE (Negative); Occult Blood Urine UA NEGATIVE (Negative); Protein Urine UA NEGATIVE (Negative); Specific Gravity Urine UA 1.010 (1.000-1.035); Urobilinogen Urine UA 0.2 E.U./dL (0.2)
[2025-05-03 12:18] LABS: pH Urine UA 5.5 (4.5-8.0)
[2025-05-03 12:20] LABS: Culture Indicated Urine Cult Not Indicated
[2025-05-03 12:44] LABS: Hematocrit 38.0 % (36-46); Hemoglobin 13.0 g/dL (12.0-16.0); Mean Corpuscular HGB Conc 34.1 % (30-36); Mean Corpuscular Hemoglobin 32.6 PG (26-34); Mean Corpuscular Volume 95.6 fL (80-100); Platelet Count 385 X10^3/uL (150-400)
[2025-05-03 12:56] LABS: Alanine Aminotransferase 14 IU/L (<35); Albumin 4.5 g/dL (3.5-5.0); Albumin Globulin Ratio 1.5 (1.0-2.8); Alkaline Phosphatase 92 U/L (38-126); Blood Urea Nitrogen 21 mg/dL (7-17); Calcium 9.7 mg/dL (8.4-10.2); Carbon Dioxide 25 mmol/L (22-32); Chloride 102 mmol/L (98-107); Cholesterol 197 mg/dL (140-199); Estimated Glomerular Filt Rate > 60 mL/min (>60); Globulin 3.0 g/dL (1.7-4.1); Glucose 96 mg/dL (70-99); HDL Cholesterol 91 mg/dL (40-60); HEMOLYSIS < 15 (0-50); Potassium 4.3 mmol/L (3.4-5.1); Sodium 134 mmol/L (137-145); Total Protein 7.5 g/dL (6.3-8.2); Triglycerides 141 mg/dL (35-150)
[2025-05-03 13:24] LABS: TSH w/ Reflex to FT4 1.30 uIU/mL (0.47-4.68)
== END ==
PROVIDERS: PCP Family Medicine; Referring Provider Family Medicine; Visit Provider Family Medicine
DX: Z00.00 Encounter for general adult medical examination without abnormal findings (principal); I10 Essential (primary) hypertension; I49.9 Cardiac arrhythmia, unspecified; N32.81 Overactive bladder; R26.89 Other abnormalities of gait and mobility
CPT/HCPCS: 36415; 80053; 80061; 81001; 84443; 85027

== ENCOUNTER → 2025-05-15 09:43 | Outpatient (CLI) | payer MEDICARE, SELFPAY ==
--- NOTE | 2025-05-15 09:46 | DI.MG.S_ITS ---
MM screening mammo BI: 05/15/2025. BI-RADS: 1 CLINICAL: 69-year old female for bilateral screening mammogram. No personal or first-degree family history of breast cancer. PRIOR EXAMS 02/20/2024, 02/14/2023, 11/07/2021, 10/29/2020. MAMMOGRAPHY TECHNIQUE: 2D and 3D (tomosynthesis) digital mammographic views obtained, with additional images as needed for full coverage. Current study was also evaluated with a Computer Aided Detection (CAD) system. DENSITY B. There are scattered areas of fibroglandular density. MAMMOGRAPHY FINDINGS Bilateral: No suspicious mass, asymmetry, microcalcification, or other abnormality seen. No significant change from comparison. IMPRESSION: * No evidence of malignancy. RECOMMENDATIONS Bilateral * Annual screening mammography. OVERALL ASSESSMENT CATEGORY BI-RADS-1: Negative. The [employer] recommends annual screening mammography beginning at age 40 for women with average risk of breast cancer. ELECTRONICALLY SIGNED: Vandana Strickland M.D. on 05/17/2025 at 10:40:35 AM PT Interpreting Station ID: [id number]
== END ==
PROVIDERS: PCP Family Medicine; Referring Provider Family Medicine; Visit Provider Family Medicine
DX: Z12.31 Encounter for screening mammogram for malignant neoplasm of breast (principal)
CPT/HCPCS: 77063; 77067